=== PATIENT | male | born 1940 | race Caucasian/White ===

== ENCOUNTER 2019-09-30 11:30 | Inpatient (IN) | payer MEDICARE, SELFPAY ==
[2019-09-30] VITALS (13 sets, daily range): BP systolic 109–148; BP diastolic 41–99; PULSE 65–79; RESP 19–32; TEMP 36.7; O2SAT 93–96; BMI 31.3; BMI 32.3
--- NOTE | 2019-09-30 11:47 | XRR_ITS ---
PROCEDURE INFORMATION: Exam: XR Chest, 1 View Exam date and time: 09/30/2019 11:49 AM Age: 79 years old Clinical indication: Shortness of breath; Patient HX: C/O SOB; Additional info: Dyspnea TECHNIQUE: Imaging protocol: XR of the chest Views: 1 view. COMPARISON: CR Chest 1 [place] [id number] 04/16/2019 8:36 AM FINDINGS: Lungs: Stable COPD . Pleural space: Unremarkable. No pleural effusion. No pneumothorax. Heart/Mediastinum: Unremarkable. No cardiomegaly. Vasculature: Calcification of the thoracic aorta and/or great vessels consistent with atherosclerotic vessel disease. Bones/joints: Unremarkable. XR/XR chest 1V portable [id number] IMPRESSION: Stable COPD .
--- NOTE | 2019-09-30 11:47 | ECG_ITS ---
Measurements Intervals [place] Rate: 70 P: 68 OR: 179 QRS: 16 QRSD: 93 T: 64 QT: 385 QTc: 417 SINUS RHYTHM Compared to ECG 04/16/2019 10:07:48 T-wave abnormality no longer present Electronically Signed On 09-30-2019 13:04:50 CDT by Liz Gibson M.D. [id number]
--- NOTE | 2019-09-30 11:51 | W.ED.SOB ---
HPI - SOB/Dyspnea General: Chief Complaint: Shortness of Breath/Dyspnea Stated Complaint: sob Time Seen by Provider: 09/30/19 11:36 History of Present Illness: HPI Narrative: Patient is a 79 year old male presenting with severe shortness of breath. He reports that it started fairly suddenly while he was out fixing fence on and was trying to walk up a hill. He says that he didn't think he was going to make it and had to stop every few steps to catch his breath. He has been admitted here for heart problems previously and has had fluid in his lungs. He takes lasix and hasn't missed any doses, he still feel like it is making him urinate like it usually does. he has not had any chest pain and no leg swelling. He denies fever but has been coughing up white phlegm. He has not had any travel, but [place] which was the first time he had been out around people in a good while. MD elicited complaint: shortness of breath and cough Pertinent past history: congestive heart failure and diabetes Onset (ago): day(s) (2) Context: occurred during exertion Timing: constant Severity: severe Exacerbating factors: lying flat, exertion, movement and talking Relieving factors: rest Known history of: congestive heart failure Associated symptoms: Reports cough and orthopnea; Deny abdominal pain, chest pain, dizziness, extremity pain, fever(s) or palpitations Review of Systems General: Reports: 10 or more systems reviewed and unremarkable except in HPI and below Const: Denies: fever(s), chills or body aches ENMT: Denies: throat pain Card: Reports: orthopnea; Denies: chest pain or palpitations Resp: Reports: dyspnea, productive cough and wheezing GI: Denies: abdominal pain : Denies: difficulty urinating or dysuria Musc: Denies: back pain or extremity pain Neuro: Denies: headache(s), numbness in extremities, weakness in extremities or dizziness Nikos/Lymph: Denies: easy bruising or easy bleeding PFSH ED PFSH: Medical History Atrial fibrillation Family History Family/Other CAD (coronary artery disease) Social History Smoking and tobacco status: never smoked Alcohol intake: never Physical Exam Const: COMMON NORMALS: patient oriented x3 and alert GENERAL APPEARANCE: in distress (mild, accessory muscles); not comfortable HENMT: HEAD & SCALP: normal to inspection FACE & SINUS: normal facial exam Neck/C-Spine: COMMON NORMALS: full ROM and no JVD Chest: COMMONS NORMALS: normal inspection of the chest Resp: EFFORT & INSPECTION: No able to speak in complete sentences, Yes tachypneic, Yes respiratory distress, Yes labored, Yes uses accessory muscles and Yes audible wheezes AUSCULTATION: diminished lung sounds diffuse and bronchial breath sounds Cardio: COMMON NORMALS: no JVD, regular rate, regular rhythm, S1 normal heart sound present and S2 normal heart sound present RATE: regular rate RHYTHM: regular rhythm HEART SOUNDS: S1 normal heart sound present and S2 normal heart sound present Neuro: COMMON NORMALS: patient oriented x3 SENSORIUM/ORIENTATION: Yes alert Course ED course: Patient severely dyspneic - even getting out of breath laying in bed and talking. Lungs clear without rales, and CXR clear. BNP not elevated. CRP and ESR are up but d-dimer is neg. WBC normal. EKG normal. Cause of his SOB is unclear and at rest his sat is ok - low 90's on RA. I suspect he would desat with exertion - but he has been put on COVID precautions and so I can't walk him in the hallway. He will need to be admitted because he is so symptomatic - but the cause of this is very unclear so far. Med list now entered and I see that the patient is amiodarone - this is a possible cause of his dyspnea. Reevaluation(s): Reevaluation #1: Patient sitting up on bedside - he reports breathing a little better - BP is 99/54. Plan to admit - but ABG ordered to further evaluate. Time: 13:39 Vital Signs: Vital signs: Vital Signs Pulse Rate 71 09/30/19 13:48 Respiratory Rate 27 H 09/30/19 13:48 Blood Pressure 118/61 09/30/19 13:48 Pulse Oximetry 94 09/30/19 13:48 MDM - SOB/Dyspnea MDM Narrative: Medical decision making narrative: Patient with shortness of breath, unclear etiology. CHF, [place], anemia (history of prior GI bleed) pneumonia, PE, COVID, amiodarone toxicity Lab Data: Labs: Lab Results 09/30/19 09/30/19 09/30/19 Range/Units 10:43 10:43 10:43 WBC 10.2 H (4.0-10.0) 10^3/ uL RBC 4.97 (4.1-5.3) 10^6/u L Hgb 13.8 (11.7-16.6) g/dL Hct 44.5 (42.0-52.0) % MCV 89.5 (80-94) fL MCH 27.8 L (28.0-34.0) pg MCHC 31.0 (30.0-36.0) g/dL RDW 15.4 H (12.1-15.1) % Plt Count 267 (130-400) 10^3/c mm MPV 9.9 (7.4-10.4) fL Neut % (Auto) 76.2 % Lymph % (Auto) 12.6 % Laurel % (Auto) 8.5 % Eos % (Auto) 2.0 % Baso % (Auto) 0.5 % Neut # (Auto) 7.8 H (1.8-7.7) 10^3/u L Lymph # (Auto) 1.3 (0.8-4.8) 10^3/u L Laurel # (Auto) 0.9 (0.2-0.9) 10^3/u L Eos # (Auto) 0.2 (0.0-0.8) 10^3/u L Baso # (Auto) 0.1 (0.0-0.1) 10^3/u L Nucleated RBC % (a uto) 0 % Nucleated RBCs # 0.0 /100WBC ESR 33 H (0-10) mm/hr PT 31.30 H (10.5-13.3) SECO NDS INR 2.88 H (0.8-1.2) D-Dimer (0-0.59) ug/mIFE U Specimen Type Sample Site ABG pH (7.35-7.45) ABG pCO2 (35-45) mmHg ABG pO2 (80.0-100.0) mmH g ABG HCO3 (22-26) mmol/L ABG Base Excess (-2.0-2.0) mmol/ L Myles Test Hematocrit (42-52) % O2 Delivery Device Piped Pocket Machine Operator ID Sodium (136-145) mmol/L Potassium (3.5-5.1) mmol/L Chloride (98-107) mmol/L Carbon Dioxide (22-29) mmol/L Anion Gap (5-19) BUN (8-23) mg/dL Creatinine (0.7-1.2) mg/dL Glucose (65-115) mg/dL Calculated Osmolal ity (285-295) mOsm/k g Lactate (0.5-2.2) mmol/L Calcium (8.5-10.5) mg/dL Magnesium (1.7-2.3) mg/dL Total Bilirubin (0.15-1.2) mg/dL AST (0-40) U/L ALT (0-41) U/L Alkaline Phosphata se (40-130) IU/L Troponin T Baselin e (0-15) ng/mL Troponin T 120 Min nita (0-15) ng/mL Delta Troponin T (0-10) ABS# C-Reactive Protein (0.0-4.9) mg/L NT-Pro-B Natriuret Pep (0-450) pg/mL Total Protein (6.6-8.7) g/dL Albumin (3.5-5.2) g/dL Globulin (1.3-4.6) g/dL Procalcitonin (0-0.5) ng/mL TSH (0.27-4.20) uIU/ mL Urine Color (Yellow) Urine Appearance (CLEAR) Urine pH (5-7) Ur Specific Gravit y (1.005-1.030) Urine Protein (Negative) Urine Glucose (UA) (Normal) Urine Ketones (Negative) Urine Blood (Negative) Urine Nitrate (Negative) Urine Bilirubin (NEGATIVE) Urine Urobilinogen (Negative) mg/dL Ur Leukocyte Lisa ase (Negative) 09/30/19 09/30/19 09/30/19 Range/Units 10:43 10:43 10:43 WBC (4.0-10.0) 10^3/ uL RBC (4.1-5.3) 10^6/u L Hgb (11.7-16.6) g/dL Hct (42.0-52.0) % MCV (80-94) fL MCH (28.0-34.0) pg MCHC (30.0-36.0) g/dL RDW (12.1-15.1) % Plt Count (130-400) 10^3/c mm MPV (7.4-10.4) fL Neut % (Auto) % Lymph % (Auto) % Laurel % (Auto) % Eos % (Auto) % Baso % (Auto) % Neut # (Auto) (1.8-7.7) 10^3/u L Lymph # (Auto) (0.8-4.8) 10^3/u L Laurel # (Auto) (0.2-0.9) 10^3/u L Eos # (Auto) (0.0-0.8) 10^3/u L Baso # (Auto) (0.0-0.1) 10^3/u L Nucleated RBC % (a uto) % Nucleated RBCs # /100WBC ESR (0-10) mm/hr PT (10.5-13.3) SECO NDS INR (0.8-1.2) D-Dimer (0-0.59) ug/mIFE U Specimen Type Sample Site ABG pH (7.35-7.45) ABG pCO2 (35-45) mmHg ABG pO2 (80.0-100.0) mmH g ABG HCO3 (22-26) mmol/L ABG Base Excess (-2.0-2.0) mmol/ L Myles Test Hematocrit (42-52) % O2 Delivery Device Piped Pocket Machine Operator ID Sodium 137 (136-145) mmol/L Potassium 5.1 (3.5-5.1) mmol/L Chloride 100 (98-107) mmol/L Carbon Dioxide 25 (22-29) mmol/L Anion Gap 17.1 (5-19) BUN 28 H (8-23) mg/dL Creatinine 1.5 H (0.7-1.2) mg/dL Glucose 252 H (65-115) mg/dL Calculated Osmolal ity 290 (285-295) mOsm/k g Lactate 2.1 (0.5-2.2) mmol/L Calcium 9.6 (8.5-10.5) mg/dL Magnesium 2.1 (1.7-2.3) mg/dL Total Bilirubin 0.4 (0.15-1.2) mg/dL AST 14 (0-40) U/L ALT 25 (0-41) U/L Alkaline Phosphata se 109 (40-130) IU/L Troponin T Baselin e 12 (0-15) ng/mL Troponin T 120 Min nita (0-15) ng/mL Delta Troponin T (0-10) ABS# C-Reactive Protein 13.7 H (0.0-4.9) mg/L NT-Pro-B Natriuret Pep 254 (0-450) pg/mL Total Protein 7.6 (6.6-8.7) g/dL Albumin 4.2 (3.5-5.2) g/dL Globulin 3.4 (1.3-4.6) g/dL Procalcitonin (0-0.5) ng/mL TSH (0.27-4.20) uIU/ mL Urine Color (Yellow) Urine Appearance (CLEAR) Urine pH (5-7) Ur Specific Gravit y (1.005-1.030) Urine Protein (Negative) Urine Glucose (UA) (Normal) Urine Ketones (Negative) Urine Blood (Negative) Urine Nitrate (Negative) Urine Bilirubin (NEGATIVE) Urine Urobilinogen (Negative) mg/dL Ur Leukocyte Lisa ase (Negative) 09/30/19 09/30/19 09/30/19 Range/Units 10:43 10:43 13:18 WBC (4.0-10.0) 10^3/ uL RBC (4.1-5.3) 10^6/u L Hgb (11.7-16.6) g/dL Hct (42.0-52.0) % MCV (80-94) fL MCH (28.0-34.0) pg MCHC (30.0-36.0) g/dL RDW (12.1-15.1) % Plt Count (130-400) 10^3/c mm MPV (7.4-10.4) fL Neut % (Auto) % Lymph % (Auto) % Laurel % (Auto) % Eos % (Auto) % Baso % (Auto) % Neut # (Auto) (1.8-7.7) 10^3/u L Lymph # (Auto) (0.8-4.8) 10^3/u L [place] # (Auto) (0.2-0.9) 10^3/u L Eos # (Auto) (0.0-0.8) 10^3/u L Baso # (Auto) (0.0-0.1) 10^3/u L Nucleated RBC % (a uto) % Nucleated RBCs # /100WBC ESR (0-10) mm/hr PT (10.5-13.3) SECO NDS INR (0.8-1.2) D-Dimer <= 0.27 (0-0.59) ug/mIFE U Specimen Type Sample Site ABG pH (7.35-7.45) ABG pCO2 (35-45) mmHg ABG pO2 (80.0-100.0) mmH g ABG HCO3 (22-26) mmol/L ABG Base Excess (-2.0-2.0) mmol/ L Myles Test Hematocrit (42-52) % O2 Delivery Device Piped Pocket Machine Operator ID Sodium (136-145) mmol/L Potassium (3.5-5.1) mmol/L Chloride (98-107) mmol/L Carbon Dioxide (22-29) mmol/L Anion Gap (5-19) BUN (8-23) mg/dL Creatinine (0.7-1.2) mg/dL Glucose (65-115) mg/dL Calculated Osmolal ity (285-295) mOsm/k g Lactate (0.5-2.2) mmol/L Calcium (8.5-10.5) mg/dL Magnesium (1.7-2.3) mg/dL Total Bilirubin (0.15-1.2) mg/dL AST (0-40) U/L ALT (0-41) U/L Alkaline Phosphata se (40-130) IU/L Troponin T Baselin e (0-15) ng/mL Troponin T 120 Min nita (0-15) ng/mL Delta Troponin T (0-10) ABS# C-Reactive Protein (0.0-4.9) mg/L NT-Pro-B Natriuret Pep (0-450) pg/mL Total Protein (6.6-8.7) g/dL Albumin (3.5-5.2) g/dL Globulin (1.3-4.6) g/dL Procalcitonin 0.10 (0-0.5) ng/mL TSH (0.27-4.20) uIU/ mL Urine Color Yellow (Yellow) Urine Appearance Clear (CLEAR) Urine pH 5 (5-7) Ur Specific Gravit y 1.015 (1.005-1.030) Urine Protein Neg (Negative) Urine Glucose (UA) 1+ (Normal) Urine Ketones Negative (Negative) Urine Blood Neg (Negative) Urine Nitrate Negative (Negative) Urine Bilirubin Neg (NEGATIVE) Urine Urobilinogen Norm (Negative) mg/dL Ur Leukocyte Lisa ase Negative (Negative) 09/30/19 09/30/19 09/30/19 Range/Units 13:41 13:48 13:48 WBC (4.0-10.0) 10^3/ uL RBC (4.1-5.3) 10^6/u L Hgb (11.7-16.6) g/dL Hct (42.0-52.0) % MCV (80-94) fL MCH (28.0-34.0) pg MCHC (30.0-36.0) g/dL RDW (12.1-15.1) % Plt Count (130-400) 10^3/c mm MPV (7.4-10.4) fL Neut % (Auto) % Lymph % (Auto) % [place] % (Auto) % Eos % (Auto) % Baso % (Auto) % Neut # (Auto) (1.8-7.7) 10^3/u L Lymph # (Auto) (0.8-4.8) 10^3/u L [place] # (Auto) (0.2-0.9) 10^3/u L Eos # (Auto) (0.0-0.8) 10^3/u L Baso # (Auto) (0.0-0.1) 10^3/u L Nucleated RBC % (a uto) % Nucleated RBCs # /100WBC ESR (0-10) mm/hr PT (10.5-13.3) SECO NDS INR (0.8-1.2) D-Dimer (0-0.59) ug/mIFE U Specimen Type Arterial Sample Site Radial, left ABG pH 7.37 (7.35-7.45) ABG pCO2 42.7 (35-45) mmHg ABG pO2 80.1 (80.0-100.0) mmH g ABG HCO3 24.5 (22-26) mmol/L ABG Base Excess -1.0 (-2.0-2.0) mmol/ L Myles Test Pos Hematocrit 43.5 (42-52) % O2 Delivery Device Room air Piped Pocket Machine Operator ID gd Sodium (136-145) mmol/L Potassium (3.5-5.1) mmol/L Chloride (98-107) mmol/L Carbon Dioxide (22-29) mmol/L Anion Gap (5-19) BUN (8-23) mg/dL Creatinine (0.7-1.2) mg/dL Glucose (65-115) mg/dL Calculated Osmolal ity (285-295) mOsm/k g Lactate (0.5-2.2) mmol/L Calcium (8.5-10.5) mg/dL Magnesium (1.7-2.3) mg/dL Total Bilirubin (0.15-1.2) mg/dL AST (0-40) U/L ALT (0-41) U/L Alkaline Phosphata se (40-130) IU/L Troponin T Baselin e (0-15) ng/mL Troponin T 120 Min nita 11.25 (0-15) ng/mL Delta Troponin T -0.75 L (0-10) ABS# C-Reactive Protein (0.0-4.9) mg/L NT-Pro-B Natriuret Pep (0-450) pg/mL Total Protein (6.6-8.7) g/dL Albumin (3.5-5.2) g/dL Globulin (1.3-4.6) g/dL Procalcitonin (0-0.5) ng/mL TSH 2.79 (0.27-4.20) uIU/ mL Urine Color (Yellow) Urine Appearance (CLEAR) Urine pH (5-7) Ur Specific Gravit y (1.005-1.030) Urine Protein (Negative) Urine Glucose (UA) (Normal) Urine Ketones (Negative) Urine Blood (Negative) Urine Nitrate (Negative) Urine Bilirubin (NEGATIVE) Urine Urobilinogen (Negative) mg/dL Ur Leukocyte Lisa ase (Negative) EKG Data^: EKG 1: Interpretation: NSR 70 normal intervals, normal axis, no ST changes Discharge Plan Discharge Admit Provider: Lisa Sánchez Coding Level of Care Code ED Tie Inspector for Chg Fwd Exam Detailed
[2019-09-30 11:54] LABS: Basophils # 0.1 10^3/uL (0.0-0.1); Basophils % 0.5 %; Eosinophils # 0.2 10^3/uL (0.0-0.8); Hematocrit 44.5 % (42.0-52.0); Hemoglobin 13.8 g/dL (11.7-16.6); Lymphocytes # 1.3 10^3/uL (0.8-4.8); Lymphocytes % 12.6 %; Mean Corpuscular Hemoglobin 27.8 pg (28.0-34.0); Mean Corpuscular Volume 89.5 fL (80-94); Mean Platelet Volume 9.9 fL (7.4-10.4); Monocytes # 0.9 10^3/uL (0.2-0.9); Monocytes % 8.5 %; Neutrophils # 7.8 10^3/uL (1.8-7.7); Neutrophils % 76.2 %; Nucleated Red Blood Cells % 0 %; Platelet Count 267 10^3/cmm (130-400); Red Blood Count 4.97 10^6/uL (4.1-5.3); Red Cell Distribution Width 15.4 % (12.1-15.1); White Blood Count 10.2 10^3/uL (4.0-10.0)
[2019-09-30 12:08] LABS: Lactate (Lactic Acid level) 2.1 mmol/L (0.5-2.2)
[2019-09-30 12:13] LABS: Troponin(5th) Baseline 12 ng/mL (0-15)
[2019-09-30 12:22] LABS: Alanine Aminotransferase 25 U/L (0-41); Albumin Level 4.2 g/dL (3.5-5.2); Alkaline Phosphatase 109 IU/L (40-130); Anion Gap 17.1 (5-19); Aspartate Amino Transferase 14 U/L (0-40); Blood Urea Nitrogen 28 mg/dL (8-23); C Reactive Protein 13.7 mg/L (0.0-4.9); Calcium 9.6 mg/dL (8.5-10.5); Carbon Dioxide 25 mmol/L (22-29); Chloride 100 mmol/L (98-107); Globulin 3.4 g/dL (1.3-4.6); Glucose 252 mg/dL (65-115); Magnesium 2.1 mg/dL (1.7-2.3); NT Pro B Type Natriuretic Pept 254 pg/mL (0-450); Osmolality Calculated 290 mOsm/kg (285-295); Potassium 5.1 mmol/L (3.5-5.1); Sodium 137 mmol/L (136-145); Total Bilirubin 0.4 mg/dL (0.15-1.2); Total Protein 7.6 g/dL (6.6-8.7)
--- NOTE | 2019-09-30 12:25 | PC.NURSE ---
Patient swabbed with the COVID swab and swab sent to lab at this time.
[2019-09-30 12:46] LABS: Erythrocyte Sedimentation Rate 33 mm/hr (0-10)
[2019-09-30 12:56] LABS: INR 2.88 (0.8-1.2)
[2019-09-30 13:12] LABS: D Dimer <= 0.27 ug/mIFEU (0-0.59)
[2019-09-30] MEDS: sodium chloride 0.9% 500 ML 999 ML IV (13:48)
--- NOTE | 2019-09-30 13:49 | ECG_ITS ---
Measurements Intervals [place] Rate: 64 P: 97 CO: 191 QRS: 15 QRSD: 92 T: 60 QT: 328 QTc: 340 SINUS RHYTHM NONSPECIFIC T-WAVE ABNORMALITY Compared to ECG 09/30/2019 14:01:28 T-wave abnormality now present Electronically Signed On 10-01-2019 9:49:00 CDT by Liz Gibson M.D. [id number]
[2019-09-30 13:51] LABS: Add Urine Microscopic? NO
[2019-09-30 13:57] LABS: Bilirubin Urine Neg (NEGATIVE); Blood Urine Neg (Negative); Glucose Urine UA 1+ (Normal); Ketones Urine Negative (Negative); Leukocyte Esterase Urine Negative (Negative); Nitrate Urine Negative (Negative); Protein Urine Neg (Negative); Specific Gravity, Urine 1.015 (1.005-1.030); Urine Appearance Clear (CLEAR); Urine Color Yellow (Yellow); Urobilinogen Urine Norm (Negative); pH Urine 5 (5-7)
[2019-09-30 14:01] LABS: ABG PCO2 42.7 mmHg (35-45); ABG PH Result 7.37 (7.35-7.45); Arterial Blood Gas Hematocrit 43.5 % (42-52); Blood Gas Allen Test Pos; Blood Gas Sample Site Radial, left; Blood Gas Sample Type Arterial; HCO3 ABG 24.5 mmol/L (22-26); Oxygen Device ROOM AIR; PO2 ABG 80.1 mmHg (80.0-100.0)
[2019-09-30 14:17] LABS: Troponin 5 2HR 11.25 ng/mL (0-15)
[2019-09-30 14:25] LABS: Thyroid Stimulating Hormone 2.79 uIU/mL (0.27-4.20)
[2019-09-30 14:38] LABS: Troponin 5 2HR Delta -0.75 ABS# (0-10)
--- NOTE | 2019-09-30 17:49 | ECG_ITS ---
Measurements Intervals [place] Rate: 69 P: 103 [place]: 179 QRS: 14 QRSD: 97 T: 64 QT: 394 QTc: 422 SINUS RHYTHM Compared to ECG 09/30/2019 12:05:30 No significant changes Electronically Signed On 09-30-2019 16:25:06 CDT by Liz Gibson M.D. [id number]
--- NOTE | 2019-09-30 21:07 | P.HP_ITS ---
Providers/Chief Complaint Admitting Physician: Lisa Sánchez MD Primary Care Provider: Bassam Hou MD Chief Complaint: sob History of Present Illness Lalo Hess is a 79 year old male who presented to the emergency room with chief complaint of difficulty breathing. He has a history of atrial fibrillation status post cardioversion in 2019 as well as congestive heart fa ilure. Denies any history of coronary artery disease. He intermittently will have some difficulty breathing but for the last few weeks has been short of breath constantly particularly with exertion. He is not able to lie flat and has noticed that he does better if he sits up in a chair for the last few weeks. He has had some swelling and reports that he is actually gained 5 pounds since yesterday. He is chronically on Lasix and reports compliance with this. Work- up in the emergency room showed a unremarkable chest x-ray. BNP was only minimally elevated. Vital signs were acceptable however with exertion patient was very tachypneic. He is chronically on amiodarone. He reports a cough that if it is productive has just clear fluid. He has nocturia at least 2-3 times a night. He is being admitted for further evaluation and treatment given how symptomatic he is. No fevers. No known sick contacts. Denies change in sense of smell or taste. No sore throat. Review of Systems Const: Denies: fever(s), chills or change in appetite ENMT: Denies: throat pain, dry mouth or nasal congestion Card: Reports: dyspnea on exertion; Denies: chest pain, palpitations or edema Resp: Reports: dyspnea; Denies: productive cough or non-productive cough GI: Denies: abdominal pain, nausea, vomiting, diarrhea or constipation : Reports: other (Nocturia) Musc: Denies: extremity pain, joint swelling or joint redness Skin/Breast: Denies: rash or pruritus Neuro: Reports: weakness in extremities and dizziness; Denies: headache(s) or numbness in extremities Psych: Denies: anxiety or depression Nikos/Lymph: Denies: easy bruising or easy bleeding Medications/Allergies Home Medications Medication Instructions Recorded Confirmed Last Taken Type atorvastatin 40 mg tablet 40 mg PO DAILY tab 05/16/19 09/30/19 09/29/19 History levothyroxine 50 mcg capsule 50 mcg PO DAILY cap 05/16/19 09/30/19 09/30/19 History magnesium oxide 400 mg PO DAILY 05/16/19 09/30/19 09/30/19 History nitroglycerin 0.4 mg sublingual 0.4 mg SUBLINGUAL Q5M PRN 05/16/19 09/30/19 Unknown History tablet tamsulosin 0.4 mg capsule 0.8 mg PO QAM cap 05/16/19 09/30/19 09/30/19 History warfarin 3 mg tablet 3 mg PO DIRECTED tab 06/05/19 09/30/19 Unknown History lisinopril 5 mg tablet 5 mg PO DAILY #90 tab 07/12/19 09/30/19 09/29/19 Rx metoprolol succinate 100 mg 100 mg PO DAILY #90 tab 07/12/19 09/30/19 09/29/19 Rx tablet,extended release 24 hr warfarin 2 mg tablet 2 mg PO DIRECTED tab 07/20/19 09/30/19 09/29/19 History amiodarone 200 mg PO QAM 09/30/19 09/30/19 09/30/19 History furosemide 40 mg PO DAILY 09/30/19 09/30/19 09/30/19 History metformin 850 mg PO QAM 09/30/19 09/30/19 09/30/19 History potassium chloride 20 meq PO QAM 09/30/19 09/30/19 09/30/19 History Allergies Allergy/AdvReac Type Severity Reaction Status Date / Time No Known Allergies Allergy Unverified 05/16/19 12:19 PFSH Acute PFSH: Medical History Atrial fibrillation Status post cardioversion June 2018 BPH (benign prostatic hyperplasia) Congestive heart failure Diabetes mellitus type 2, noninsulin dependent Diverticulosis Essential hypertension Hypothyroid Mixed hyperlipidemia Surgical History History of cataract surgery History of lumbar laminectomy Hx of cholecystectomy Family History Family/Other CAD (coronary artery disease) Social History Smoking and tobacco status: never smoked Alcohol intake: never Vitals/I&O/Wt Last Vital Signs Temp 98.0 F 09/30/19 18:36 Pulse 72 09/30/19 20:00 Resp 20 H 09/30/19 20:00 BP 132/59 09/30/19 20:00 Pulse Ox 93 09/30/19 20:00 09/30/19 09/30/19 09/30/19 06:59 14:59 22:59 Intake Total 449.55 / 449.55 Balance 449.55 / 449.55 Weight last 48 hrs Weight 93.525 kg Weight 90.718 kg Physical Exam Const: OTHER: Alert, oriented x3, cooperative but anxious due to respiratory status, mild distress HENMT: OTHER: Normocephalic atraumatic, moist mucus membranes Eye: OTHER: Extraocular movements intact Neck/C-Spine: OTHER: Supple, positive JVD Resp: OTHER: Bibasilar Rales, supraclavicular retractions, tachypneic Cardio: OTHER: Regular rhythm, no murmur GI: OTHER: Abdomen soft, nontender, nondistended with positive bowel sounds Extremity: NARRATIVE EXTREMITY EXAM: Trace pitting edema Neuro: OTHER: Face symmetric, speech clear, moves all extremities Psych: OTHER: Normal affect Skin: OTHER: Skin without any lesions or rashes noted Data : 10/01/19 04:40 10/01/19 04:40 A&P Assessment and plan (1) Dyspnea on exertion: Clinically patient sounds like he has acute on chronic CHF. Symptomatic atrial fibrillation and even an anginal equivalent can present this way however. One thing to keep in mind is the chronic amiodarone which she is on since his cardioversion in June of last year and possibly even prior to that. Status: Acute (2) Congestive heart failure: Status: Chronic Qualifiers: Heart failure chronicity: acute on chronic Heart failure type: systolic Qualified Code(s): I50.23 - Acute on chronic systolic (congestive) heart failure (3) Atrial fibrillation: Status: Chronic Qualifiers: Atrial fibrillation type: paroxysmal Qualified Code(s): I48.0 - Paroxysmal atrial fibrillation (4) Diabetes mellitus type 2, noninsulin dependent: Status: Chronic (5) Chronic anticoagulation: Status: Chronic (6) Essential hypertension: Status: Chronic (7) Mixed hyperlipidemia: Status: Chronic (8) BPH (benign prostatic hyperplasia): Status: Chronic Qualifiers: Lower urinary tract symptom detail: nocturia Lower urinary tract symptom presence: symptoms present Qualified Code(s): N40.1 - Benign prostatic hyperplasia with lower urinary tract symptoms; R35.1 - Nocturia (9) Hypothyroid: Status: Chronic Qualifiers: Hypothyroidism type: unspecified Qualified Code(s): E03.9 - Hypothyroidism, unspecified Additional A&P Information Inpatient admission Follow-up pended COVID testing Initiate some diuresis and monitor response Given prostatic hypertrophy if needs catheter will place Repeat echocardiogram Telemetry monitoring Follow serial troponins Home medications as ordered including an DELONTE inhibitor, statin, thyroid medication, Flomax and metoprolol Continue amiodarone presently Keep on Coumadin, check another INR Coumadin provides appropriate VTE prophylaxis as it is currently therapeutic Supportive care otherwise Plans discussed with patient and he was given an opportunity to ask questions Full code Attestations Medical Necessity Statement*: Anticipated stay greater than 2 midnights in this gentleman presenting with progressively worsening dyspnea on exertion. He is not somebody who comes to the hospital frequently. Symptoms are strongly suggestive of acute on chronic CHF. He is on Lasix usually. Plans are as noted above. Coding Level of Care Code Acute Gerontological Nurse Practitioner for Stan Haider Diagnoses Dyspnea on exertion R06.00 Congestive heart failure I50.23 Heart failure chronicity: acute on chronic Heart failure type: systolic Atrial fibrillation I48.0 Atrial fibrillation type: paroxysmal Diabetes mellitus type 2, noninsulin dependent E11.9 Chronic anticoagulation Z79.01 Essential hypertension I10 Mixed hyperlipidemia E78.2 BPH (benign prostatic hyperplasia) N40.1; R35.1 Lower urinary tract symptom detail: nocturia Lower urinary tract symptom presence: symptoms present Hypothyroid E03.9 Hypothyroidism type: unspecified
[2019-09-30] MEDS: enoxaparin 40 mg/0.4 mL Syringe SUBCUT (21:36)
[2019-09-30] MEDS: ondansetron 2 mg/ML SDV 2 mL 4 MG IVP (21:36)
[2019-09-30] MEDS: FUROsemide 10 mg/mL SDV 4mL 40 MG IVP (21:36)
[2019-10-01] VITALS (12 sets, daily range): BP systolic 112–160; BP diastolic 52–74; PULSE 65–87; RESP 17–23; TEMP 36.6–36.9; O2SAT 92–96
[2019-10-01 05:02] LABS: Basophils % 0.3 %; Eosinophils # 0.2 10^3/uL (0.0-0.8); Hematocrit 43.9 % (42.0-52.0); Hemoglobin 13.5 g/dL (11.7-16.6); Lymphocytes # 1.2 10^3/uL (0.8-4.8); Lymphocytes % 17.6 %; Mean Corpuscular HGB Conc 30.8 g/dL (30.0-36.0); Mean Corpuscular Hemoglobin 28.7 pg (28.0-34.0); Mean Corpuscular Volume 93.2 fL (80-94); Mean Platelet Volume 9.4 fL (7.4-10.4); Monocytes # 0.6 10^3/uL (0.2-0.9); Monocytes % 9.3 %; Neutrophils # 4.6 10^3/uL (1.8-7.7); Neutrophils % 69.2 %; Nucleated Red Blood Cells % 0 %; Platelet Count 237 10^3/cmm (130-400); Red Blood Count 4.71 10^6/uL (4.1-5.3); Red Cell Distribution Width 15.6 % (12.1-15.1); White Blood Count 6.7 10^3/uL (4.0-10.0)
[2019-10-01 05:26] LABS: Anion Gap 18.6 (5-19); Blood Urea Nitrogen 25 mg/dL (8-23); Calcium 9.6 mg/dL (8.5-10.5); Carbon Dioxide 25 mmol/L (22-29); Chloride 98 mmol/L (98-107); Glucose 148 mg/dL (65-115); Osmolality Calculated 284 mOsm/kg (285-295); Potassium 4.6 mmol/L (3.5-5.1); Sodium 137 mmol/L (136-145)
[2019-10-01] MEDS: tamsulosin 0.4 mg Capsule 0.8 MG PO (05:44)
[2019-10-01] MEDS: amiodarone 200 mg Tablet PO (05:45)
[2019-10-01] MEDS: atorvastatin 40 mg Tablet PO (08:39)
[2019-10-01] MEDS: levothyroxine 50 mcg Tablet PO (08:39)
[2019-10-01] MEDS: FUROsemide 40 mg Tablet PO (08:39)
[2019-10-01] MEDS: lisinopril 5 mg Tablet PO (08:40)
[2019-10-01] MEDS: metoprolol succinate ER (24 HR) 100 mg Tablet PO (08:40)
[2019-10-01] MEDS: magnesium oxide 400 mg tablet PO (08:40)
[2019-10-01] MEDS: warfarin 2 mg Tablet PO (13:35)
[2019-10-01 14:58] LABS: Coronavirus Lab Test PTC SEE REPORT
[2019-10-01] MEDS: enoxaparin 40 mg/0.4 mL Syringe SUBCUT (20:44)
--- NOTE | 2019-10-01 22:26 | PM.PN ---
Subjective Subjective: Interval history: Patient doing much better today. Had over 2-1/2 L out with Lasix last night. Vee catheter was placed to facilitate this. Feels like he can breathe again. No new complaints. COVID testing came back negative and he is being transferred to [facility]. Vitals/I&O/Wt Last Vital Signs Temp 97.8 F 10/01/19 19:53 Pulse 72 10/01/19 19:53 Resp 18 10/01/19 19:53 BP 126/68 10/01/19 19:53 Pulse Ox 95 10/01/19 19:53 10/01/19 10/01/19 10/01/19 06:59 14:59 22:59 Intake Total 534 / 534 360 / 894 Output Total 1000 / 1300 200 / 200 300 / 500 Balance -1000 / -850.45 334 / 334 60 / 394 Weight last 48 hrs Weight 93.525 kg Weight 90.718 kg Physical Exam Const: OTHER: Alert, oriented x3, no distress today, not as anxious HENMT: OTHER: Moist mucous membranes Eye: OTHER: Extraocular movements intact Neck/C-Spine: OTHER: Supple, no JVD Resp: OTHER: Improved aeration throughout Cardio: OTHER: Regular rate and rhythm GI: OTHER: Abdomen soft, nontender : BLADDER/KIDNEY EXAM: Yes catheter in place Catheter type (Male): urethral (Placed night of 09/29-) Extremity: NARRATIVE EXTREMITY EXAM: No pitting edema Neuro: OTHER: Speech clear, moves all extremities Psych: OTHER: Normal affect Skin: OTHER: Skin without any lesions or rashes noted Data : 10/01/19 04:40 10/01/19 04:40 A&P Assessment and plan (1) Dyspnea on exertion: Given significant response to diuretic therapy I do believe this is secondary to acute on chronic CHF. Symptomatic atrial fibrillation and even an anginal equivalent can present this way however. Currently in sinus rhythm. Denies chest pain. One thing to keep in mind is the chronic amiodarone which he is on since his cardioversion in June of last year and possibly even prior to that. Status: Acute (2) Congestive heart failure: Status: Chronic Qualifiers: Heart failure chronicity: acute on chronic Heart failure type: systolic Qualified Code(s): I50.23 - Acute on chronic systolic (congestive) heart failure (3) Acute kidney injury: Believe secondary to acute CHF. 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 Status: Acute (4) Atrial fibrillation: Status post cardioversion, currently in sinus rhythm Status: Chronic Qualifiers: Atrial fibrillation type: paroxysmal Qualified Code(s): I48.0 - Paroxysmal atrial fibrillation (5) Chronic anticoagulation: Coumadin Status: Chronic (6) Diabetes mellitus type 2, noninsulin dependent: Status: Chronic (7) Essential hypertension: Status: Chronic (8) Mixed hyperlipidemia: Status: Chronic (9) BPH (benign prostatic hyperplasia): Status: Chronic Qualifiers: Lower urinary tract symptom detail: nocturia Lower urinary tract symptom presence: symptoms present Qualified Code(s): N40.1 - Benign prostatic hyperplasia with lower urinary tract symptoms; R35.1 - Nocturia (10) Hypothyroid: Status: Chronic Qualifiers: Hypothyroidism type: unspecified Qualified Code(s): E03.9 - Hypothyroidism, unspecified Additional A&P Information Changed to p.o. Lasix Monitor response Discontinue Vee Post Vee removal monitor for ability to urinate secondary to BPH Follow-up pending echocardiogram Telemetry monitoring Monitor renal function Home medications include DELONTE inhibitor, statin, thyroid medication, Flomax, metoprolol, amiodarone On home Coumadin with appropriate INR Coumadin provides appropriate VTE prophylaxis as it is currently therapeutic Supportive care otherwise Plans discussed with patient and he was given an opportunity to ask questions If he continues to do well possible discharge home tomorrow outpatient follow-up Full code Attestations Medical Necessity Statement*: Requires ongoing inpatient stay for continued diuresis in the setting of acute CHF with acute kidney injury and respiratory issues. Other plans as noted. 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
[2019-10-02] VITALS: BP 116/62; PULSE 61; RESP 18; TEMP 36.6; O2SAT 100
[2019-10-02 04:00] VITALS: BP 136/74; PULSE 63; RESP 14; TEMP 36.4; O2SAT 98
[2019-10-02] MEDS: tamsulosin 0.4 mg Capsule 0.8 MG PO (05:31)
[2019-10-02] MEDS: amiodarone 200 mg Tablet PO (05:31)
--- NOTE | 2019-10-02 06:00 | USCV_ITS ---
Lalo Hess Age: 79 Gender: M : 1940 Exam Date: 10/02/2019 07:36 Ordering Phys: Lisa Sánchez MD Technologist: Louisa Cortés [place]am [place] [facility] [place]: CHF BP: 136 / 74 HR: 63 Rhythm: Sinus Technical Quality: Adequate MEASUREMENTS (Male / Female) Normal Values 2D ECHO LV Diastolic Diameter PLAX 4.3 cm 4.2 - 5.9 / 3.9 - 5.3 cm LV Systolic Diameter PLAX 2.9 cm LV Chamber Size 2.9 cm IVS Diastolic Thickness 1.9 cm 0.6 - 1.0 / 0.6 - 0.9 cm IVS Systolic Thickness 1.9 cm LVPW Diastolic Thickness 2.4 cm 0.6 - 1.0 / 0.6 - 0.9 cm LVPW Systolic Thickness 2.6 cm RV Chamber Size 3.7 cm LVOT Diameter 2.1 cm LV Ejection Fraction 2D Teich 59.8 % LV Ejection Fraction MOD 2C 78.8 % LV Ejection Fraction 2C AL 81.3 % LA Diameter 5.0 cm LA Width 3.5 cm LA Height 4.8 cm RA Width 3.8 cm RA Height 3.9 cm Aorta at Sinotubular Diameter 2.7 cm M-MODE LV Diastolic Diameter MM 5.3 cm 4.2 - 5.9 / 3.9 - 5.3 cm LV Systolic Diameter MM 3.3 cm LV Ejection Fraction MM Teich 68.4 % IVS Diastolic Thickness MM 1.0 cm 0.6 - 1.0 / 0.6 - 0.9 cm IVS Systolic Thickness MM 1.7 cm LVPW Diastolic Thickness MM 1.1 cm 0.6 - 1.0 / 0.6 - 0.9 cm LVPW Systolic Thickness MM 1.6 cm Aortic Annulus Diameter 3.3 cm LA Ao Ratio MM 1.5 MV E Point Septal Separation 1.5 cm DOPPLER AV Peak Velocity 132.0 cm/s LVOT Peak Velocity 92.0 cm/s AV Area Cont Eq vti 2.4 cm squared AV Area Cont Eq pk 2.3 cm squared MV Area PHT 3.7 cm squared Mitral E to A Ratio 0.9 MV E' Velocity 12.0 cm/s Mitral E to MV E' Ratio 7.1 Mitral E to LV E' Lateral Ratio 5.4 Mitral E to LV E' Septal Ratio 10.6 TR Peak Velocity 118.0 cm/s TR Peak Gradient 5.5 mmHg TV Peak E Velocity 36.0 cm/s Right Atrial Pressure 3.0 mmHg Pulmonary Artery Systolic Pressu 8.6 mmHg PV Peak Velocity 45.0 cm/s RV Acceleration Time 0.1 s RV Ejection Time 0.3 s RV AcT/ET 0.4 FINDINGS Left Ventricle Normal left ventricular size and systolic function, EF 72 %. No regional wall motion abnormalities. Grade I/IV diastolic dysfunction (abnormal relaxation filling pattern), normal to mildly elevated filling pressures. Right Ventricle Possibly normal RV size and ejection fraction Right Atrium Possibly of normal size Left Atrium Possibly of normal size Mitral Valve Thickened mitral valve. Aortic Valve Thickened aortic valve. Tricuspid Valve No gross abnormalities noted Pulmonic Valve Pulmonic valve not well visualized. Pericardium No pericardial effusion. Aorta Normal aortic annulus size. CONCLUSIONS Normal left ventricular size and systolic function, EF 72 %. No regional wall motion abnormalities. Grade I/IV diastolic dysfunction (abnormal relaxation filling pattern), normal to mildly elevated filling pressures. Thickened aortic and mitral valves. There is no pericardial effusion. Technically difficult study because of the poor ultrasonic window. Dr Stephanie Arauz MD FACC (Electronically Signed) Final Date: 02 Oct 2019 14:51 S
[2019-10-02 06:07] LABS: INR 2.36 (0.8-1.2)
[2019-10-02 07:48] VITALS: BP 120/65; PULSE 65; RESP 23; TEMP 36.6
[2019-10-02] MEDS: metoprolol succinate ER (24 HR) 100 mg Tablet PO (09:45)
[2019-10-02] MEDS: lisinopril 5 mg Tablet PO (09:45)
[2019-10-02] MEDS: magnesium oxide 400 mg tablet PO (09:45)
[2019-10-02] MEDS: atorvastatin 40 mg Tablet PO (09:45)
[2019-10-02] MEDS: FUROsemide 40 mg Tablet PO (09:45)
[2019-10-02] MEDS: levothyroxine 50 mcg Tablet PO (09:45)
[2019-10-02 10:00] VITALS: TEMP 36.8
[2019-10-02 11:33] VITALS: BP 112/52; PULSE 71; RESP 19; TEMP 36.8; O2SAT 94
--- NOTE | 2019-10-02 12:20 | PM.DCS ---
Discharge Providers Date of Admission: 09/30/19 14:16 Date of Discharge: October 02, 2019 Attending Provider at Admission: Lisa Sánchez MD Attending Provider at Discharge: Marivel Luo MD Primary Care Provider: Bassam Hou MD Diagnoses at Discharge Discharge Diagnosis (1) Dyspnea on exertion: Status: Acute Problem details: -appears to be secondary to acute CHF exacerbation (2) Congestive heart failure: Status: Chronic Problem details: -appears clinically compensated -has known hx of chronic HFrEF -last Echo (06/2018): EF=35%, global LV hypokinesis, trace to mild SC, trace to mild TR, mild pulmonary HTN -continue Lasix Qualifiers: Heart failure chronicity: acute on chronic Heart failure type: systolic Qualified Code(s): I50.23 - Acute on chronic systolic (congestive) heart failure (3) Acute kidney injury: Status: Acute Problem details: -renal function improving -baseline Cr around 0.9-1.0 -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 (4) Atrial fibrillation: Status: Chronic Problem details: -Status post cardioversion June 2018 -rate controlled -continue Amiodarone, Metoprolol -on AC with coumadin Qualifiers: Atrial fibrillation type: paroxysmal Qualified Code(s): I48.0 - Paroxysmal atrial fibrillation (5) Chronic anticoagulation: Status: Chronic Problem details: -on AC with Coumadin, therapeutic INR (2.36) (6) Diabetes mellitus type 2, noninsulin dependent: Status: Chronic Problem details: -can resume metformin on d/c (7) Essential hypertension: Status: Chronic Problem details: -VSS; continue oral antihypertensives (8) Mixed hyperlipidemia: Status: Chronic Problem details: -continue statin (9) BPH (benign prostatic hyperplasia): Status: Chronic Problem details: -on Flomax Qualifiers: Lower urinary tract symptom detail: nocturia Lower urinary tract symptom presence: symptoms present Qualified Code(s): N40.1 - Benign prostatic hyperplasia with lower urinary tract symptoms; R35.1 - Nocturia (10) Hypothyroid: Status: Chronic Problem details: -continue levothyroxine Qualifiers: Hypothyroidism type: unspecified Qualified Code(s): E03.9 - Hypothyroidism, unspecified Reason for Visit Reason for Visit: Reason For Visit: sob Hospital Course Hospital Course: Patient was admitted to [facility] and started on IV diuresis secondary to noted dyspnea on exertion and clinical evidence of acute CHF exacerbation. He does have known chronic systolic CHF with ejection fraction of 35% on most recent echo done in June 2018. He responded fairly well and quite quickly to diuresis with Lasix and currently appears clinically compensated. He was found to have acute kidney injury at the renal function has since improved. INR is therapeutic at 2.36 and he has been on Coumadin which he takes due to history of chronic atrial fibrillation. He is hemodynamically stable, afebrile, on room air. He was tested for COVID-19 which is negative; he was maintained on isolation precautions prior to results being available; isolation precautions were subsequently discontinued once results came back negative. Patient responded quite well to his dose of Lasix 40 mg once daily and is to remain on this on discharge. He is advised to check his weight daily and if noted weight gain of 3-5 pounds is to take 1 extra dose of Lasix. Discharge Summary: -Patient to follow-up with primary care physician within 1 week Physical Exam Const: COMMON NORMALS: no acute distress and patient oriented x3 GENERAL APPEARANCE: cooperative and comfortable ORIENTATION/CONSCIOUSNESS: Yes awake OTHER: -Looks appropriate for age HENMT: COMMON NORMALS: normocephalic, atraumatic and moist oral mucous membranes HEAD & SCALP: normocephalic and atraumatic GENERAL EAR: hearing grossly impaired Laterality: bilateral Eye: COMMON NORMALS: Equal, round and reactive pupils present, EOMs intact bilaterally and conjunctivae normal CONJUNCTIVA: Yes conjunctivae normal PUPIL: Yes Equal, round and reactive pupils present Neck/C-Spine: COMMON NORMALS: full ROM GENERAL: Yes normal visual inspection and Yes trachea midline Resp: COMMON NORMALS: normal respiratory effort, No retractions, No use of accessory muscles and clear to auscultation bilaterally EFFORT & INSPECTION: Yes able to speak in complete sentences, Yes symmetric chest movement and No tachypneic AUSCULTATION: clear to auscultation bilaterally Cardio: COMMON NORMALS: regular rate, regular rhythm, S1 normal heart sound present, S2 normal heart sound present and No murmurs present (Cardio) RATE: regular rate RHYTHM: regular rhythm HEART SOUNDS: S1 normal heart sound present and S2 normal heart sound present GI: COMMON NORMALS: Normal to inspection, nondistended, normoactive bowel sounds present, Soft to palpation and non-tender INSPECTION: Yes central obesity PALPATION: Yes Soft to palpation Extremity: COMMON NORMALS: normal to inspection, full ROM and no clubbing, cyanosis or edema; negative for no pedal edema GENERAL: Yes edema (Trace pitting edema of bilateral lower extremities) Neuro: COMMON NORMALS: patient oriented x3, moves all extremities, no focal motor deficits and no sensory deficits noted Psych: COMMON NORMALS: mental status grossly normal, Normal thought process present, cooperative, normal affect and speech normal SPEECH: Yes normal speech THOUGHT PROCESS: Normal thought process present Skin: COMMON NORMALS: no rashes or lesions noted, no jaundice, no petechiae and no mottling GENERAL SKIN EXAM: no rashes or lesions noted Discharge Data Data Completed and Pending: Completed Studies During Hospitalization Category Date Time Status XR chest 1V liz ble [id number] Stat Exams 09/30/19 11:47 Completed Pending at discharge Category Date Time Status Basic Metabolic P tay AM LABS Lab 10/03/19 04:00 Ordered Complete Blood Co unt w/Auto AM LABS Lab 10/03/19 04:00 Ordered Magnesium AM LABS Lab 10/03/19 04:00 Ordered CV echo complete* [id number] Routine Ultrasound 10/02/19 06:00 Taken Labs from last 24 hours 10/02/19 09/30/19 05:11 12:25 PT 26.70 H INR 2.36 H Nasal/Oral COVID-1 9 PCR See report Vitals: Last Vital Signs Temp 98.2 F 10/02/19 11:33 Pulse 71 10/02/19 11:33 Resp 19 H 10/02/19 11:33 BP 112/52 10/02/19 11:33 Pulse Ox 94 10/02/19 11:33 Discharge Plan Discharge Patient Disposition: Home, Self-Care Condition: Stable Prescriptions: Continued atorvastatin 40 mg tablet 40 mg PO DAILY RF: 0 levothyroxine 50 mcg capsule 50 mcg PO DAILY RF: 0 magnesium oxide 400 mg magnesium capsule 400 mg PO DAILY RF: 0 nitroglycerin [Nitrostat] 0.4 mg tablet, sublingual 0.4 mg SUBLINGUAL Q5M PRN (Reason: Chest Pain) RF: 0 tamsulosin [Flomax] 0.4 mg capsule 0.8 mg PO QAM RF: 0 warfarin 3 mg tablet 3 mg PO DIRECTED RF: 0 metoprolol succinate 100 mg tablet extended release 24 hr 100 mg PO DAILY Qty: 90 RF: 3 lisinopril 5 mg tablet 5 mg PO DAILY Qty: 90 RF: 3 warfarin 2 mg tablet 2 mg PO DIRECTED RF: 0 amiodarone 200 mg tablet 200 mg PO QAM RF: 0 metformin 850 mg tablet 850 mg PO QAM RF: 0 potassium chloride 20 mEq tablet,ER particles/crystals 20 meq PO QAM RF: 0 furosemide 40 mg tablet 40 mg PO DAILY 30 Days Qty: 30 RF: 0 Discharge Orders: Discharge Order (Routine); Ordered 10/02/19 Ordered By: Marivel Luo Discharge Diet: Cardiac Discharge Activity: Resume usual activity Activity Restrictions/Additional Instructions: -Please continue to weigh yourself daily. If noted weight gain of 3-5 pounds within 24 hrs, please take one extra dose of Lasix. Discharge Attestations Time Spent in Discharge Care*: greater than 30 min Specific Discharge Activities: Specific discharge activities: educating patient, discussing with vocational case manager/social workers/dc planners, documenting/other paperwork and evaluating patient/reviewing data Status at Discharge: Cognitive status at discharge: cognitively intact, Behavioral status at discharge: cooperative, Functional status at discharge: independent ambulation Overall status at discharge: patient is back to baseline Quality Metrics Clinical Quality Measures During this hospital stay, did patient experience: None Coding Level of Care Code Acute Edging Machine Catcher for g Fwd Exam Comprehensive Diagnoses Dyspnea on exertion R06.00 Congestive heart failure I50.23 Heart failure chronicity: acute on chronic Heart failure type: systolic Acute kidney injury N17.9 Atrial fibrillation I48.0 Atrial fibrillation type: paroxysmal Chronic anticoagulation Z79.01 Diabetes mellitus type 2, noninsulin dependent E11.9 Essential hypertension I10 Mixed hyperlipidemia E78.2 BPH (benign prostatic hyperplasia) N40.1; R35.1 Lower urinary tract symptom detail: nocturia Lower urinary tract symptom presence: symptoms present Hypothyroid E03.9 Hypothyroidism type: unspecified
[2019-10-02] MEDS: warfarin 3 mg Tablet PO (13:50)
== END 2019-10-02 15:31 | disposition home or self-care (01) | DRG 291 ==
LOC: ER 11:42 → ICU 15:27 → CSU 10-01 18:43
PROVIDERS: Emergency Medicine; Admitting Provider Hospitalist; PCP Family Medicine; Visit Provider Family Medicine
DX: I13.0 Hypertensive heart and chronic kidney disease with heart failure and stage 1 through stage 4 chronic kidney disease, or unspecified chronic kidney disease (principal); I50.23 Acute on chronic systolic (congestive) heart failure; N17.9 Acute kidney failure, unspecified; I48.20 Chronic atrial fibrillation, unspecified; N18.2 Chronic kidney disease, stage 2 (mild); E11.22 Type 2 diabetes mellitus with diabetic chronic kidney disease; Z79.84 Long term (current) use of oral hypoglycemic drugs; Z79.01 Long term (current) use of anticoagulants; E78.2 Mixed hyperlipidemia; E03.9 Hypothyroidism, unspecified; R35.1 Nocturia; N40.1 Benign prostatic hyperplasia with lower urinary tract symptoms; Z20.828 Contact with and (suspected) exposure to other viral communicable diseases
CPT/HCPCS: 12345; 36415; 36600; 71045; 80048; 80053; 81003; 82803; 83605; 83735; 83880; 84145; 84443; 84484; 85025; 85378; 85610; 85651; 86140; 87635; 93005; 93306; 96372; 96375; 99284; J1650; J1940; J2405; J7040

== ENCOUNTER 2019-11-09 08:18 | Outpatient (CLI) | payer MEDICARE, SELFPAY ==
[2019-11-09 08:29] VITALS: BMI 31.3
--- NOTE | 2019-11-09 08:29 | ECG_ITS ---
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 Interpretive Statements NAME OF STUDY: LEXISCAN SESTAMIBI STRESS TEST INDICATION: Chest Pain, PROCEDURE: At the baseline, the EKG revealed normal sinus rhythm with some nonspecific T wave changes in the high lateral leads. The baseline blood pressure was 147/81 mm Hg with a heart rate of 61 beats/min. Lexiscan was infused over a period of 20 seconds. A total of 0.4 milligrams of Lexiscan was infused. The stress phase was continued for a total of 5 minutes. Heart rate at the end of the stress phase was 69 with a blood pressure 148/77. The EKG at the peak infusion revealed some nonspecific T wave changes in the anterior leads. Sestamibi was injected 20 seconds after the Lexiscan infusion. Blood pressure at the end of the recovery phase was 143/73 with a heart rate of 67 per minute. CONCLUSION: 1. Nonspecific EKG changes with the LexiScan infusion 2. No LexiScan induced chest pain or cardiac arrhythmia 3. Normal blood pressure and heart rate response 4. Sestamibi/sestamibi perfusion scan pending; see separate report. Electronically Signed On 11-14-2019 13:19:50 CDT by Stephanie Arauz M.D. [id number]
--- NOTE | 2019-11-09 08:29 | NMCV_ITS ---
NM morena perf SPECT r/s* [id number] Lalo Hess Age: 79 Gender: M : 1940 Exam Date: 11/09/2019 09:09 Ordering Phys: Stephanie Arauz MD ([email or web address]) Technologist: MANJIT Miller Exam Location: [facility] Indications: SHORTNESS OF BREATH, CHF STRESS TEST Please see separate stress test report in [facility] for full findings IMAGE PROTOCOL Rest/Stress 1 Lexiscan Day Radiopharmaceutical Dose (mCi) Administration Site Administered by Rest: Tc-99m 10.8 IV MANJIT Ferris Sestamibi Stress:Tc-99m 32.5 IV MANJIT Ferris Sestamibi Rest: 09-Nov-2019 60 Discovery 630 Stress: 09-Nov-2019 30 Discovery 630 0.4mg Lexiscan. Images obtained in supine and prone position. SPECT RESULTS Technical Quality: Excellent Raw Data Analysis: Normal Image Corrections: No attenuation or motion correction applied Summed Stress Score: 8 Summed Rest Score: 9 Summed Difference Score: 1 PERFUSION FINDINGS Moderate area of decreased tracer uptake was noted in the basal and mid inferolateral, mid and apical inferior and apical lateral segments. No significant reversibility was noted in these regions. FUNCTIONAL RESULTS (calculated via Gated SPECT) Stress Image LV EF (%): 71 Stress EDV (mL):98 TID: 1.53 Stress ESV (mL):28 FUNCTIONAL FINDINGS: The segmental wall motion analysis revealed no gross wall motion normalities IMPRESSIONS 1. Myocardial perfusion imaging revealing moderate area of persistent decreases uptake in the inferior and inferolateral regions, suggestive of myocardial scarring versus attenuation artifact in the distribution of the right coronary artery/circumflex artery. 2. Normal LV ejection fraction 71%. 3. LV wall motion analysis revealing no gross wall motion normalities 4. Normal LV volume. Elevated transient ischemic dilatation ratio(1.52), may suggest endocardial ischemia. However the positive predictive value this finding is limited. Clinical correlation is recommended. Dr Stephanie Arauz MD FACC (Electronically Signed) Final Date: 09 November 2019 12:57 S
[2019-11-09] MEDS: regadenoson 0.4 Mg/5 ml Syringe IVP (09:55)
[2019-11-09 09:58] VITALS: BP 152/76; PULSE 73
== END 2019-11-09 08:19 | disposition home or self-care (01) ==
LOC: CDL 08:20
PROVIDERS: PCP Family Medicine; Visit Provider Internal Medicine Cardiovascular Disease
DX: I50.23 Acute on chronic systolic (congestive) heart failure (principal); R06.02 Shortness of breath
CPT/HCPCS: 78452; 93017; A9500; J2785

== ENCOUNTER → 2019-11-15 09:38 | Outpatient (BNVA) | payer MEDICARE, SELFPAY | PROVIDERS: PCP Family Medicine; Visit Provider Internal Medicine Cardiovascular Disease | DX: R94.39 Abnormal result of other cardiovascular function study (principal); I50.23 Acute on chronic systolic (congestive) heart failure; E11.9 Type 2 diabetes mellitus without complications; I10 Essential (primary) hypertension; E78.2 Mixed hyperlipidemia; Z79.01 Long term (current) use of anticoagulants; I48.0 Paroxysmal atrial fibrillation | CPT/HCPCS: 80053; 85025 ==

== ENCOUNTER 2019-11-16 08:16 | Observation (INO) | payer MEDICARE, SELFPAY ==
[2019-11-15 12:27] VITALS: BMI 31.3
--- NOTE | 2019-11-15 13:38 | SUR.PREOP ---
PROCEDURE TIME CHANGE Discussed tomorrow's case load with Dr Arauz. Asked if okay to move procedure to 0700 tomorrow as the previously scheduled case cancelled. States he is okay with the change as long as the patient comes in for pre operative blood work. Patient notified. States he had the blood work done at 0930 and is okay with moving the procedure up to 0700 tomorrow with a 0600 check in. Scheduling made aware of the change and the patient moved as appropriate.
[2019-11-15 13:49] LABS: INR 1.37 (0.8-1.2)
--- NOTE | 2019-11-15 13:56 | SUR.PREOP ---
INR RESULT INR CALLED TO MD ORDERED. RESULT 1.37 No new orders at this time.
[2019-11-16] VITALS (30 sets, daily range): BP systolic 91–170; BP diastolic 57–102; PULSE 52–66; RESP 16–26; TEMP 36.4–36.9; O2SAT 90–98
--- NOTE | 2019-11-16 06:00 | XACV_ITS ---
Ht: 170 cm Wt: 91 kg BSA: 2.10 m2 Gender: Male : 1940 Any Known Allergies: No known allergies Exam Priority: Routine Procedure(s): Procedure Description: Diagnostic procedure Procedure Description: Left ventriculography Procedure Description: Coronary Angiography Diagnostic Cath Status: Elective Diagnostic Findings No significant disease noted in the Left Main, LAD, Circumflex, or RCA coronary arteries. Coronary angiography shows right dominance. The left main is a medium caliber vessel with a mild diffuse intimal irregularities. Mild to moderate coronary calcification was noted. The left anterior descending artery is a medium caliber vessel which appears to wrap around the LV apex. It gives off multiple diagonal and septal perforators. Moderate diffuse calcification was noted in the proximal to mid segment of the artery. Mild diffuse intimal irregularities were noted. No significant stenotic lesions. The circumflex artery is a medium caliber vessel with mild diffuse calcification in the proximal segment. Intimal irregularities were noted in the obtuse marginal branches. No significant stenotic lesions. The intermedius artery is a medium caliber vessel appears to bifurcate proximally and was found to have mild diffuse disease. The right coronary artery is a medium caliber dominant vessel which has a high and posterior takeoff. Selective engagement of the artery was somewhat difficult. Multiple catheters were tried. There was around 30% ostial narrowing in the artery. No significant stenotic lesions were noted in the vessel. PCI Status: Elective Conclusions No significant disease noted in the Left Main, LAD, Circumflex, or RCA coronary arteries. Normal left ventricular systolic function. Ejection fraction of 55%. This is a 79-year-old white male with history of hypertension, type 2 diabetes, dyslipidemia, intermittent atrial fibrillation, presented with atypical chest symptoms and dyspnea on exertion. He has a strong family history for atherosclerotic heart disease. He had multiple stress testings in the past. Most recently, the myocardial perfusion imaging revealed some areas of fixed defects in the inferolateral wall region with an elevated transient ischemic dilatation ratio of 1.5. In view of his multiple risk factors and the ongoing symptoms, in order to further evaluate his coronary status, a cardiac catheterization was recommended. Patient underwent left heart catheterization with a left and right coronary angiogram and LV angiogram today. The findings are as follows. Mild diffuse coronary artery disease. Mild to moderate coronary calcification in the proximal vessels specifically in the left main and left anterior descending artery. Normal LV ejection fraction by LV gram. Features of left ventricular diastolic dysfunction with an LVEDP of 23 mmHg. Recommendations Continue current medical management and risk factor modification. Diagnostic RX Recommendation: medical therapy and/or counseling LV EDP: 23 mmHg Ejection Fraction: 55.0 % Left Ventriculography Findings: LV gram was performed the FRANZ projection.. The LV cavity appears to be of normal size. There is no significant mitral valve prolapse or mitral regurgitation. LV ejection fraction was around 55%. Pressures Phase:Rest AO : 107 mmHg / 55 mmHg ( 72 mmHg ) @ 2:21:00 AM 107 mmHg / 56 mmHg ( 73 mmHg ) @ 2:21:00 AM 62 mmHg / 27 mmHg ( 40 mmHg ) @ 2:24:00 AM 106 mmHg / 48 mmHg ( 69 mmHg ) @ 2:54:00 AM 105 mmHg / 44 mmHg ( 71 mmHg ) @ 2:54:00 AM LV : 124 mmHg / -2 mmHg / @ 2:21:00 AM 120 mmHg / -2 mmHg / @ 2:21:00 AM 121 mmHg / 4 mmHg / @ 2:53:00 AM 111 mmHg / 1 mmHg / @ 2:54:00 AM 111 mmHg / 0 mmHg / @ 2:54:00 AM Valves Phase:DefaultPhase AV : 5.0 mmHg @ 8:07:35 AM AV Mean Gradient: 6.0 mmHg @ 8:07:35 AM 6.0 mmHg @ 8:07:35 AM Clinical Evaluation EBL: 5mL-10mL Procedural Details Procedure Consent Obtained. Physician notified. Pre-Procedure Time Out. Identified patient by full name and date of as verbalized by the patient/guarantor. Does the consent match the physician's order: Yes. Accurate & Complete Informed Consent: Yes. Inpatient/Outpatient History & Physical on Chart: Yes. If H&P is completed, is and addenduem needed: No; If yes, is the addendum complete: N/A. Visualize and Verify Site with Patient/Guarantor: N/A. Relevant Radiology Images available: Yes. Pre-op teaching completed and patient verbalized understanding. The risks, benefits, and alternatives of sedation and/or procedure were discussed by physician. The patient agrees to continue. Procedure started. Current diagnosis: Chest Pain. PERRLA. Strong, equal hand waterway traffic checker bilaterally. Lungs clear x 5 lobes. IV Site on Arrival: 20 gauge in the left anticubital. IV Fluids: 0.9% NaCl at KVO. 0 mL infused prior to cathode maker. Pre Procedural Pulses: bilateral dorsalis pedis was 1+. Pre Procedural Pulses: bilateral posterior tibial was 1+. Pre Procedural Pulses: bilateral radial was 3+. Oxygen started at 2liters/min via nasal canula. bilateral groins was prepped with chloroprep then draped in the usual sterile fashion. right radial was prepped with chloroprep then draped in the usual sterile fashion. Baseline sample Acquired. HR: 66 BPM. Equipment: 6F - Radial. [email or web address] Manifold Kit Model BT 2000. Cardiac Cath Pack. Heparinized Saline (2 units/mL), 1000 mL bag. Physician arrived. Physician scrubbed in. Immediate Pre-Procedure Time Out. Correct Patient: Yes; Correct Procedure: Yes; Correct Site: Yes; Correct Patient Position: Yes; Correct Supplies: Yes; Dried Flammable Prep: Yes; Blood Products Available: No;. Lidocaine 1% infiltrated to the right radial. Arterial access obtained. A 5 eritrean Eh catheter in over wire. EDP Sample taken: LV 124/-3,17; HR: 62 BPM; SpO2: 96%. Pullback taken: LV 120/-3,16; AO 107/55(72); Mean: 0mmHg, Peak to Peak: 0mmHg, SEP: 17sec/min; HR: 64 BPM; SpO2: 97%. Multiple views taken of left coronary artery. Catheter redirected to the RCA. Catheter out. A 6 eritrean JR4 catheter in over wire. Multiple views taken of right coronary artery. Catheter out. A 6 eritrean 3DRC catheter in over wire. Bolus complete. Fluids running at 75ml/hr. Catheter out. A 6 eritrean AL1 catheter in over wire. Catheter out. Multiple views taken of right coronary artery. Catheter out. A 6 eritrean Angled Pig catheter in over wire. EDP Sample taken: LV 121/4,23; HR: 61 BPM; SpO2: 98%. LV gram performed in FRANZ @ 10 mL/second for a total of 30 mL. EDP Sample taken: LV 111/1,17; HR: 61 BPM; SpO2: 98%. Pullback taken: LV 111/0,16; AO 106/48(69); Mean: 6mmHg, Peak to Peak: 5mmHg, SEP: 19sec/min; HR: 61 BPM; SpO2: 98%. Catheter out. Physician reviewing films. A TR Band was successful obtaining hemostatsis at the Right Radial artery insertion site. Post Procedure: Pulses reassessed and unchanged. PERRLA. Strong, equal hand waterway traffic checker bilaterally. No VTE prophylaxis required. Contrast type used: Omnipaque 300 mgI/mL, 500 mL bottle. Post-op diagnosis: Chest Pain. Complications: None. [facility] Clinical Fraility Score: 2: Well. Link Cutter Indications: Suspected CAD. Chest Pain Symptom Assessment: Typical Angina Symptoms. Cardiovascular Instability: No. Medication's Wasted: Lidocaine 1% = 18 mL. Medication's Wasted: Heparin = 1000 units. Medication's Wasted: Nitro = 49.8 mg. Medication's Wasted: Other = Versed 1 mg. Medication's Wasted: Other = Fentanyl [address] Arauz contacted spouse. Total IV fluids: 298 mL. Estimated blood loss: 5mL-10mL. Vital chart was stopped. Procedure completed. Patient transferred by wheelchair to 1st floor. Site: Right Radial artery Sheath Size: 6 Fr Hemostasis Method: TR Band Hemostasis Success: Successful Procedure Medications Start: 7:09 AM Stop: 7:09 AM Medication: Versed Amount: 1 mg Route: I.V. Start: 7:09 AM Stop: 7:09 AM Medication: Fentanyl Amount: 50 mcg Route: I.V. Start: 7:17 AM Stop: 7:17 AM Medication: Verapamil Amount: 5 mg Route: I.A. Start: 7:17 AM Stop: 7:17 AM Medication: Versed Amount: 1 mg Route: I.V. Start: 7:17 AM Stop: 7:17 AM Medication: Fentanyl Amount: 50 mcg Route: I.V. Start: 7:18 AM Stop: 7:18 AM Medication: Nitrogylcerin Amount: 200 mcg Route: I.A. Start: 7:18 AM Stop: 7:18 AM Medication: 0.9% Saline Amount: 250 ml Route: I.V. bolus Start: 7:20 AM Stop: 7:20 AM Medication: Heparin Amount: 5000 units Route: I.V. Start: 7:30 AM Stop: 7:30 AM Medication: Versed Amount: 1 mg Route: I.V. Start: 7:30 AM Stop: 7:30 AM Medication: Fentanyl Amount: 50 mcg Route: I.V. I, the attending physician, have reviewed and verified all procedure medications. Yes, all medications given per verbal order History/Risk Factors Hypertension: Yes Dyslipidemia: Yes Diabetic Therapy: Oral Peripheral Arterial Disease (PAD): No Myocardial Infarction (KS): No Obesity: Yes Renal Disease: Yes Tobacco Use: Never Prior Interventions PCI: No CABG: No Valve Surgery: No Report Signatures Finalized by:Dr Stephanie Arauz MD [facility] on 11/16/2019 9:12:37 AM
[2019-11-16] MEDS: diphenhydrAMINE 50 mg Capsule PO (06:48)
--- NOTE | 2019-11-16 07:07 | W.PM.OPSUD ---
Surgery/Procedure H&P Update DATE OF PROCEDURE: November 16, 2019 DATE H&P PERFORMED: 11/13/19 H&P UPDATE INFORMATION: I have reviewed H&P completed within last 30 days, I have examined patient prior to procedure and No changes to prior documentation PREOP DIAGNOSIS: ASHD PLANNED PROCEDURE: Operation Date: 11/16/19 07:00 Proposed Procedures p Cardiac Catheterization(Left) - Stephanie Arauz MD PATIENT REASSESSED PRIOR TO SEDATION, WITH NO CHANGE NOTED: Yes PHYSICAL EXAM: alert, oriented x 3, clear to auscultation bilaterally and regular rate & rhythm AIRWAY EVAL/ANESTHESIA PLAN: normal airway, see other exam findings, ASA II, Monitored Anesthesia, Local Anesthesia, Risks, benefits & alternatives of sedation and/or procedure discussed and Patient agrees to continue as planned
--- NOTE | 2019-11-16 08:27 | PC.NURSE ---
Patient arrived to room at 0805 from CCL. 2 nurse verification of insertion site. TR band intact with 17 ml of air. Radial pulse palpable, no pain or tingling in hand. Neurovascular check WNL. Patient up to chair with call light in reach. Nurse to continue to monitor.
--- NOTE | 2019-11-16 10:56 | PC.CHAP ---
Pastoral Care Encounter/Spiritual Assessment Type of Contact [] Declined groundskeeping maintenance worker visit [] Patient/Family/Request visit [] Outpatient visit [] Follow-up visit [] Physician referral [] Code/Alert [x] Routine visit [] Staff referral [] Actively dying [] Patient sleeping [] Family support [] [] Out of room [] Palliative care [] [] Receiving care in room [] Pre-surgical visit [] Trauma [] Long length of stay [] ICU visit [] Other: Relational/Emotional Strength [x] Patient feels connected with others/family/visitors/staff [] Distress [] Loneliness/isolation [] Abandonment Spirituality of Patient [x] Person of Dorothy x] Attends Moravian of their Dorothy [x] Believes in Prayer x[] Reads Bible or Evangelical materials [] There are Spiritual issues to be addressed Accounting Recruiter Interventions [x] Prayer [x] Active listening [x] Non-anxious presence [x] Spiritual/emotional support [] Crisis/trauma care [] Spiritual counseling [] Bereavement support [] Provided bereavement packet [] Provided Bible/devotional materials [] Provided toy/stuffed animal, coloring book to patient or family member [] Provided Communion [] Anointing/[place] [] Salvation [x] Completed spiritual assessment [] Other: Impact on Illness or Injury [] Angry [] Fearful [] Anxious [] Often cries [] Exhaustion [] Unable to work [] Unable to attend caodaism [] Unable to walk/stand [] Unable to read [] Unable to drive [] Unable to eat/drink [] Unable to sleep [] Unable to be with family [] Patient intubated [] Other: Summary Patient is strong in his dorothy and trust of [employer]ras[employer]. Time spent with patient 10 minutes
--- NOTE | 2019-11-16 13:09 | PC.NURSE ---
TR band off at 1300. 17 ml of air removed slowly. Incision asymptomatic. Dressing CDI. Patient tolerated well.
--- NOTE | 2019-11-16 16:21 | PC.NURSE ---
Discharge instructions given per the physician's orders. Patient verbalized understanding of changes made to meds and verbalized understanding of the importance of keeping appointments. Patient did not have any further questions. has been contacted for discharge ride.
== END 2019-11-16 16:31 | disposition home or self-care (01) ==
LOC: CSU 08:16
PROVIDERS: Admitting Provider Internal Medicine Cardiovascular Disease; PCP Family Medicine; Visit Provider Internal Medicine Cardiovascular Disease
DX: I25.10 Atherosclerotic heart disease of native coronary artery without angina pectoris (principal); I48.91 Unspecified atrial fibrillation; E66.9 Obesity, unspecified; Z68.31 Body mass index [BMI] 31.0-31.9, adult; Z79.01 Long term (current) use of anticoagulants; N40.0 Benign prostatic hyperplasia without lower urinary tract symptoms; I11.0 Hypertensive heart disease with heart failure; I50.9 Heart failure, unspecified; E11.9 Type 2 diabetes mellitus without complications; Z79.84 Long term (current) use of oral hypoglycemic drugs; E78.2 Mixed hyperlipidemia; E03.9 Hypothyroidism, unspecified; Z82.49 Family history of ischemic heart disease and other diseases of the circulatory system; R94.39 Abnormal result of other cardiovascular function study; I50.23 Acute on chronic systolic (congestive) heart failure; I10 Essential (primary) hypertension; I48.0 Paroxysmal atrial fibrillation
CPT/HCPCS: 12345; 36415; 80053; 85025; 85610; 86850; 86900; 93452; C1769; C1887; C1894; G0378; J1644; J2001; J2250; J3010; J3490; J7030; Q0163; Q9967

== ENCOUNTER → 2019-11-23 09:05 | Outpatient (BNVA) | payer MEDICARE, SELFPAY | PROVIDERS: PCP Family Medicine; Visit Provider Nurse Practitioner Family | DX: I25.10 Atherosclerotic heart disease of native coronary artery without angina pectoris (principal); I25.119 Atherosclerotic heart disease of native coronary artery with unspecified angina pectoris | CPT/HCPCS: 80048 ==

== ENCOUNTER → 2020-03-29 12:10 | Outpatient (BNVA) | payer MEDICARE, SELFPAY | PROVIDERS: PCP Family Medicine; Visit Provider Surgery | DX: K57.90 Diverticulosis of intestine, part unspecified, without perforation or abscess without bleeding (principal) | CPT/HCPCS: 87635 ==

== ENCOUNTER 2020-04-04 09:04 | Day surgery (SDC) | payer MEDICARE, SELFPAY ==
[2020-04-03 13:56] VITALS: BMI 31.3
[2020-04-04 09:21] VITALS: BP 149/83; PULSE 75; RESP 18; TEMP 36.3; O2SAT 97
[2020-04-04 09:37] LABS: Glucose Point of Care 144 mg/dL (70-110)
[2020-04-04] MEDS: sodium chloride 0.9% 1,000 ML 30 ML IV (09:37)
--- NOTE | 2020-04-04 09:52 | W.PM.OPSUD ---
Surgery/Procedure H&P Update DATE OF PROCEDURE: April 04, 2020 DATE H&P PERFORMED: 03/22/20 H&P UPDATE INFORMATION: I have reviewed H&P completed within last 30 days, I have examined patient prior to procedure and No changes to prior documentation PREOP DIAGNOSIS: colon polyps PLANNED PROCEDURE: Operation Date: 04/04/20 10:30 Proposed Procedures p Excision of right arm lesion 20738 L98.9(Right) - Andrzej Costa MD s Colonoscopy 10451 Z86.010(Not Applicable) - Andrzej Costa MD
--- NOTE | 2020-04-04 09:54 | ANES.PREANE2 ---
Pre-Anesthetic Assessment Pre-Anesthetic Assessment: Height/Weight: Height 1.7 m Weight 90.718 kg Temp Pulse Resp BP Pulse Ox 97.4 F L 75 18 149/83 97 04/04/20 09:21 04/04/20 09:21 04/04/20 09:21 04/04/20 09:21 04/04/20 09:21 Preop Diagnosis: colon polyps Proposed Procedure: Operation Date: 04/04/20 10:30 Proposed Procedures p Excision of right arm lesion 64894 L98.9(Right) - Andrzej Costa MD s Colonoscopy 99287 Z86.010(Not Applicable) - Andrzej Costa MD Familial anesthetic complications: none Was Beta Errol taken within 24 hours: Yes Last intake: Intake Last Liquid Date 04/03/20 Last Liquid Time 21:00 Last Solid Date 04/02/20 Last Solid Time 21:00 Social: Social History: No alcohol and No tobacco Exam: Pre-Anes Outpt Exam: alert, oriented x 3, clear to auscultation bilaterally and regular rate & rhythm Airway: Cervical ROM: WNL MP: 3 Dentition: Chipped and Other (missing) CV/HEM: CV/HEM: Afib, CAD, CHF and HTN Comments: chronic intermittent atrial fibrillation, intermittent episodes of diastolic heart failure, left ventricular diastolic l dysfunction and mild coronary artery disease. sLHC showed mild diffuse coronary artery disease. T Metabolic: Metabolic: DM, Hyperlipidemia and Morbid obesity Anesthetic Plan: ASA status: 4 Anesthesia: MAC Risk of > 500 ml blood loss (7ml/kg in children): No Meds/Allergies Current Medications: Current Medications Generic Name Dose Route Start Last Admin Trade Name Freq PRN Reason Stop Dose Admin Sodium Chloride 1,000 mls @ 30 ml s/hr 04/04/20 08:15 04/04/20 09:37 Sodium Chloride 0.9% IV 04/05/20 08:14 30 mls/hr .Q24H ANURADHA Administration PFSH Anesthesia PFSH: Medical History Abnormal myocardial perfusion study Atrial fibrillation -Status post cardioversion June 2018 BPH (benign prostatic hyperplasia) -on Flomax Congestive heart failure -appears clinically compensated -has known hx of chronic HFrEF -last Echo (06/2018): EF=35%, global LV hypokinesis, trace to mild OR, trace to mild TR, mild pulmonary HTN -continue Lasix Coronary artery disease Diabetes mellitus type 2, noninsulin dependent -can resume metformin on d/c Diverticulosis Essential hypertension Hypothyroid -continue levothyroxine Surgical History H/O colonoscopy 2019 H/O esophagogastroduodenoscopy 2019 History of cataract surgery History of lumbar laminectomy Hx of cholecystectomy Family History Family/Other CAD (coronary artery disease) Social History Smoking and tobacco status: never smoked Alcohol intake: never Household members: spouse Marital status: Current occupational status: retired History of recent travel: No Data Anesthesia Other Labs: Laboratory Results - last 48 hr 04/04/20 09:33 POC Glucose 144 Cardiac Studies: No Data to Display
[2020-04-04] MEDS: lidocaine 1% INJ 20 mL SUBCUT (13:50)
--- NOTE | 2020-04-04 14:14 | PM.OP ---
Operative Report Date of procedure: April 04, 2020 Pre-op Diagnosis: 1. History of colon polyps 2. Bleeding skin lesion right arm Post-op Diagnosis: Ascending colon polyp x3 removed with hot snare Descending colon polyp removed with hot snare Skin lesion right arm Procedure Done: Colonoscopy with polypectomy using cold biopsy forceps Colonoscopy with polypectomy using hot snare Excision of skin lesion right arm Specimens removed/disposition: Ascending colon polyp x3 Descending colon polyp Skin lesion right arm Surgeon: Andrzej Costa Surgeon: Anesthesia: MAC Condition: stable Disposition: PACU Procedure: The patient was taken to the operating room and placed in left lateral position under MAC. The right arm was prepped and draped in a sterile manner. 5 cc of 1% lidocaine with 0.5% Marcaine was infiltrated around the lesion. Using 15 blade, an elliptical incision was made around the lesion and specimen was excised from the surrounding subcutaneous tissue using electrocautery. Medial and lateral skin flaps were raised in the subcutaneous tissues approximated using interrupted 3-0 Vicryl suture and skin was closed using running subcuticular 4-0 Monocryl suture and surgical glue. Digital rectal exam revealed internal hemorrhoids A colonoscope was introduced and advanced up to cecum and slowly withdrawn. The colon prep was fair Cecum: Normal Ascending colon: 1 cm and 7 mm pedunculated polyp removed with a hot snare. Another 5 mm polyp removed with a hot snare. The 1 cm polyp could not be retrieved and the patient has been given sieve to retrieve the specimen Transverse colon: Normal Descending colon: Family made a sessile polyp removed with cold biopsy forceps Sigmoid colon: Moderate diverticulosis Rectum: Internal hemorrhoids
[2020-04-04 14:21] VITALS: BP 168/68; PULSE 66; RESP 18; TEMP 36.4; O2SAT 97
[2020-04-04 14:35] VITALS: BP 123/69; PULSE 65; RESP 18; TEMP 36.2; O2SAT 96
--- NOTE | 2020-04-04 15:52 | ANE.PACU2 ---
Inpatient post-anesthesia follow up: Airway intact: Yes Vital signs: Temperature 97.1 F Pulse Rate 65 Respiratory Rate 18 Blood Pressure 123/69 Pulse Oximetry 96 Oxygen Delivery Me thod Room Air Oxygen Flow Rate Fraction of Inspir ed Oxygen Hydration adequate: Yes Nausea and vomiting: No Pain level: 1 Mental status: Baseline
== END 2020-04-04 15:00 | disposition home or self-care (01) ==
PROVIDERS: PCP Family Medicine; Visit Provider Surgery
PROC: (CPT 11402; principal; 2020-04-04 10:30)
PROC: 0DJD8ZZ Inspection of Lower Intestinal Tract, Via Natural or Artificial Opening Endoscopic (ICD-10-PCS; CPT 45378; 2020-04-04 10:30)
DX: K63.5 Polyp of colon (principal); D18.01 Hemangioma of skin and subcutaneous tissue; K57.30 Diverticulosis of large intestine without perforation or abscess without bleeding; K64.8 Other hemorrhoids; I48.91 Unspecified atrial fibrillation; I25.10 Atherosclerotic heart disease of native coronary artery without angina pectoris; I11.0 Hypertensive heart disease with heart failure; I50.9 Heart failure, unspecified; E11.9 Type 2 diabetes mellitus without complications; E78.5 Hyperlipidemia, unspecified; E66.01 Morbid (severe) obesity due to excess calories; Z68.31 Body mass index [BMI] 31.0-31.9, adult; E03.9 Hypothyroidism, unspecified
CPT/HCPCS: 11402; 12345; 36416; 45380; 45385; 82962; 88304; 88305; J2704; J3490; J7030

== ENCOUNTER 2020-05-12 10:40 | Emergency (ER) | payer MEDICARE, SELFPAY ==
[2020-05-12] VITALS (11 sets, daily range): BP systolic 131–142; BP diastolic 64–82; PULSE 64–67; RESP 18–23; TEMP 36.7; O2SAT 90–96; BMI 30.4
--- NOTE | 2020-05-12 10:42 | XRR_ITS ---
PROCEDURE INFORMATION: Exam: XR Chest, 1 View Exam date and time: 05/12/2020 10:52 AM Age: 80 years old Clinical indication: Chest pain TECHNIQUE: Imaging protocol: XR of the chest Views: 1 view. COMPARISON: CR XR chest 1V portable [id number] 09/30/2019 11:59 AM FINDINGS: Lungs: Unremarkable. No consolidation. Pleural space: Unremarkable. No pleural effusion. No pneumothorax. Heart/Mediastinum: Unremarkable. No cardiomegaly. Bones/joints: Unremarkable. XR/XR chest 1V portable [id number] IMPRESSION: No acute findings.
--- NOTE | 2020-05-12 10:44 | ECG_ITS ---
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 Measurements Intervals [place] Rate: 67 P: 59 NH: 178 QRS: 22 QRSD: 101 T: 64 QT: 418 QTc: 442 Interpretive Statements SINUS RHYTHM Compared to ECG 09/30/2019 18:11:07 T-wave abnormality no longer present Electronically Signed On 05-13-2020 16:55:18 LIMO DRIVER by Dario Quijano M.D. [email or web address]
--- NOTE | 2020-05-12 10:46 | ED_ITS ---
HPI - Chest Pain General: Chief Complaint: Chest Pain Stated Complaint: CP Time Seen by Provider: 05/12/20 10:42 Source: patient Mode of arrival: ambulatory Limitations: no limitations History of Present Illness: HPI narrative: 80-year-old male with history of paroxysmal atrial fibrillation, hypertension, CHF, and hypothyroidism presents with complaints of chest pain that started approximately 1 hour SWITCHMAN while he was sitting in [employer]. Continuous, retrosternal, sharp, stabbing, pressure. Associated nausea, diaphoresis, pallor. No radiation. On the way here he took a sublingual nitroglycerin, which improved his pain. No recent fever, worsening cough or congestion. He did have Covid several months ago, and says he has not felt well since then. Denies palpitations or syncope. No increased lower extremity edema. Denies abdominal pain. Associated symptoms: Reports dyspnea and nausea; Deny abdominal pain, fever(s), palpitations or vomiting Review of Systems General: Reports: 10 or more systems reviewed and unremarkable except in HPI and below Const: Denies: fever(s), chills, body aches, change in appetite or change in weight Eyes: Denies: change in vision or blurry vision Card: Reports: chest pain, swelling of feet/ankles, lightheadedness, dyspnea on exertion and orthopnea; Denies: palpitations or irregular heart rhythm Resp: Reports: dyspnea, non-productive cough and chest congestion; Denies: pain on inspiration GI: Reports: nausea; Denies: abdominal pain, vomiting, heartburn, bloating or GI cramping : Denies: difficulty urinating, dysuria or urinary hesitancy Musc: Reports: extremity swelling; Denies: neck pain, back pain or extremity pain Skin/Breast: Denies: rash, pruritus or erythema Neuro: Denies: headache(s), numbness in extremities, weakness in extremities or confusion Nikos/Lymph: Reports: easy bruising and easy bleeding PFS ED PFSH: Medical History Abnormal myocardial perfusion study Atrial fibrillation -Status post cardioversion June 2018 BPH (benign prostatic hyperplasia) -on Flomax Congestive heart failure -appears clinically compensated -has known hx of chronic HFrEF -last Echo (06/2018): EF=35%, global LV hypokinesis, trace to mild NV, trace to mild TR, mild pulmonary HTN -continue Lasix Coronary artery disease Diabetes mellitus type 2, noninsulin dependent -can resume metformin on d/c Diverticulosis Essential hypertension History of colon polyps Hypothyroid -continue levothyroxine Surgical History H/O colonoscopy (04/04/20) H/O esophagogastroduodenoscopy 2019 History of cataract surgery History of lumbar laminectomy Hx of cholecystectomy Family History Family/Other CAD (coronary artery disease) Social History Smoking and tobacco status: never smoked Alcohol intake: never Household members: spouse Marital status: Current occupational status: retired History of recent travel: No Physical Exam Const: COMMON NORMALS: alert GENERAL APPEARANCE: anxious and ill appearing; not diaphoretic NUTRITIONAL APPEARANCE: overweight ORIENTATION/CONSCIOUSNESS: Yes awake, Yes oriented to person and Yes oriented to time HENMT: COMMON NORMALS: normocephalic and atraumatic HEAD & SCALP: normocephalic and atraumatic FACE & SINUS: normal facial exam and face symmetric Eye: COMMON NORMALS: Equal, round and reactive pupils present, EOMs intact bilaterally, conjunctivae normal and no scleral icterus GENERAL EYE: appearance normal, both eyes and all related structures CONJUNCTIVA: Yes conjunctivae normal PUPIL: Yes Equal, round and reactive pupils present Neck/C-Spine: COMMON NORMALS: full ROM and no lymphadenopathy GENERAL: Yes normal visual inspection, No anterior neck swelling, No lymphadenopathy, No tender and Yes JVD Lymph: LYMPHATIC: no lymphadenopathy noted Chest: COMMONS NORMALS: normal inspection of the chest and normal palpation of entire chest wall Resp: EFFORT & INSPECTION: Yes labored AUSCULTATION: diminished lung sounds and bronchovesicular breath sounds Cardio: COMMON NORMALS: regular rate, regular rhythm, S1 normal heart sound present and S2 normal heart sound present JUGULAR VENOUS DISTENTION: JVD positive to the level of the angle of the jaw RATE: regular rate RHYTHM: regular rhythm HEART SOUNDS: S1 normal heart sound present and S2 normal heart sound present BRUITS: no abdominal aortic bruits GI: COMMON NORMALS: Soft to palpation INSPECTION: Yes abdominal distension and Yes central obesity PALPATION: Yes Soft to palpation, No Tenderness to palpation present (GI), No Guarding due to palpation present (GI), No Rigid due to palpation and No Ascites present Extremity: GENERAL: No cyanosis, No deformity, Yes edema and No mottling Neuro: SENSORIUM/ORIENTATION: Yes alert, Yes oriented to person and Yes oriented to time CRANIAL NERVES: Yes CN normal except as noted SPEECH: speech normal Skin: COMMON NORMALS: no rashes or lesions noted GENERAL SKIN EXAM: no rashes or lesions noted, no erythema, no induration, no jaundice, no petechiae and no purpura Course Vital Signs: Vital signs: Vital Signs Temperature 98.1 F 05/12/20 10:43 Pulse Rate 66 05/12/20 14:34 Respiratory Rate 20 H 05/12/20 14:34 Blood Pressure 142/82 05/12/20 14:34 Pulse Oximetry 96 05/12/20 14:34 MDM - Chest Pain MDM Narrative: Medical decision making narrative: 80-year-old male with a history of diabetes, atrial fibrillation, hypertension presents with chest pain for the past hour. Initial EKG did not show any changes compared to prior. Vital signs stable. Patient did start having recurrent severe pain shortly after being set up for exam and x-ray. He then developed nausea and vomiting. Morphine, Zofran, and another dose of sublingual nitro was administered. Repeat EKG did not show any significant changes. Baseline troponin 12, 2-hour repeat 11.51 Chest x-ray does not show any acute abnormalities. IV GI meds given in case there is a component of esophagitis; he felt much better following treatment. We will recommend that he take Protonix daily for the next 4 weeks Instructed to call his navigating officer tomorrow and request a follow-up. At time of discharge, the patient appeared much better, no distress, not having any pain. He has not vomited in several hours, was tolerating p.o. O2 sats were normal on room air. Differential Diagnosis: Cardiac arrest differential diagnosis: Likely acute massive pulmonary embolism and acute myocardial infarction Medical Records: Attestation: I reviewed the patient's medical records. Lab Data: Attestation: I reviewed the patient's lab results. Labs: Lab Results 05/12/20 05/12/20 05/12/20 Range/Units 10:51 10:51 10:51 WBC 7.6 (4.0-10.0) 10^3/ uL RBC 4.91 (4.1-5.3) 10^6/u L Hgb 13.9 (11.7-16.6) g/dL Hct 44.0 (42.0-52.0) % MCV 89.6 (80-94) fL MCH 28.3 (28.0-34.0) pg MCHC 31.6 (30.0-36.0) g/dL RDW 14.1 (12.1-15.1) % Plt Count 286 (130-400) 10^3/c mm MPV 9.6 (7.4-10.4) fL Neut % (Auto) 74.3 % Lymph % (Auto) 16.3 % [place] % (Auto) 6.8 % Eos % (Auto) 1.4 % Baso % (Auto) 0.7 % Neut # (Auto) 5.67 (1.8-7.7) 10^3/u L Lymph # (Auto) 1.2 (0.8-4.8) 10^3/u L [place] # (Auto) 0.5 (0.2-0.9) 10^3/u L Eos # (Auto) 0.1 (0.0-0.8) 10^3/u L Baso # (Auto) 0.1 (0.0-0.1) 10^3/u L Nucleated RBC % (a uto) 0 % Nucleated RBCs # 0.0 /100WBC PT 19.30 H (12.1-14.9) SECO NDS INR 1.57 H (0.8-1.2) Sodium 141 (136-145) mmol/L Potassium 4.7 (3.5-5.1) mmol/L Chloride 102 (98-107) mmol/L Carbon Dioxide 28 (22-29) mmol/L Anion Gap 15.7 (5-19) BUN 16 (8-23) mg/dL Creatinine 1.5 H (0.7-1.2) mg/dL GFR Calculation Not Reportable Glucose 145 H (65-115) mg/dL Calculated Osmolal ity 296 H (285-295) mOsm/k g Calcium 9.0 (8.5-10.5) mg/dL Magnesium 1.8 (1.7-2.3) mg/dL Total Bilirubin 0.5 (0.15-1.2) mg/dL AST 23 (0-40) U/L ALT 24 (0-41) U/L Alkaline Phosphata se 114 (40-130) IU/L Troponin T Baselin e (0-15) ng/L Troponin T 120 Min [place] (0-15) ng/L Delta Troponin T (0-10) ABS# NT-Pro-B Natriuret Pep 500 H (0-450) pg/mL Total Protein 6.8 (6.6-8.7) g/dL Albumin 4.0 (3.5-5.2) g/dL Globulin 2.8 (1.3-4.6) g/dL Urine Color (Yellow) Urine Appearance (CLEAR) Urine pH (5-7) Ur Specific Gravit y (1.005-1.030) Urine Protein (Negative) Urine Glucose (UA) (Normal) Urine Ketones (Negative) Urine Blood (Negative) Urine Nitrate (Negative) Urine Bilirubin (Negative) Urine Urobilinogen (Negative) mg/dL Ur Leukocyte Lisa ase (Negative) Urine RBC (0-2) /hpf Urine WBC (0-5) /hpf Ur Squamous Epith Cells (0-5) /hpf Amorphous Sediment Urine Bacteria (NONE) /hpf Urine Mucus /hpf 05/12/20 05/12/20 05/12/20 Range/Units 10:51 12:35 12:47 WBC (4.0-10.0) 10^3/ uL RBC (4.1-5.3) 10^6/u L Hgb (11.7-16.6) g/dL Hct (42.0-52.0) % MCV (80-94) fL MCH (28.0-34.0) pg MCHC (30.0-36.0) g/dL RDW (12.1-15.1) % Plt Count (130-400) 10^3/c mm MPV (7.4-10.4) fL Neut % (Auto) % Lymph % (Auto) % [place] % (Auto) % Eos % (Auto) % Baso % (Auto) % Neut # (Auto) (1.8-7.7) 10^3/u L Lymph # (Auto) (0.8-4.8) 10^3/u L [place] # (Auto) (0.2-0.9) 10^3/u L Eos # (Auto) (0.0-0.8) 10^3/u L Baso # (Auto) (0.0-0.1) 10^3/u L Nucleated RBC % (a uto) % Nucleated RBCs # /100WBC PT (12.1-14.9) SECO NDS INR (0.8-1.2) Sodium (136-145) mmol/L Potassium (3.5-5.1) mmol/L Chloride (98-107) mmol/L Carbon Dioxide (22-29) mmol/L Anion Gap (5-19) BUN (8-23) mg/dL Creatinine (0.7-1.2) mg/dL GFR Calculation Glucose (65-115) mg/dL Calculated Osmolal ity (285-295) mOsm/k g Calcium (8.5-10.5) mg/dL Magnesium (1.7-2.3) mg/dL Total Bilirubin (0.15-1.2) mg/dL AST (0-40) U/L ALT (0-41) U/L Alkaline Phosphata se (40-130) IU/L Troponin T Baselin e 12 (0-15) ng/L Troponin T 120 Min [place] 10.51 (0-15) ng/L Delta Troponin T -1.49 L (0-10) ABS# NT-Pro-B Natriuret Pep (0-450) pg/mL Total Protein (6.6-8.7) g/dL Albumin (3.5-5.2) g/dL Globulin (1.3-4.6) g/dL Urine Color Yellow (Yellow) Urine Appearance Hazy A (CLEAR) Urine pH 5 (5-7) Ur Specific Gravit y 1.020 (1.005-1.030) Urine Protein Neg (Negative) Urine Glucose (UA) Trace H (Normal) Urine Ketones 1+ H (Negative) Urine Blood Neg (Negative) Urine Nitrate Negative (Negative) Urine Bilirubin Neg (Negative) Urine Urobilinogen 1 H (Negative) mg/dL Ur Leukocyte Lisa ase Negative (Negative) Urine RBC None (0-2) /hpf Urine WBC None (0-5) /hpf Ur Squamous Epith Cells 5-10 H (0-5) /hpf Amorphous Sediment Not Reportable Urine Bacteria Trace (NONE) /hpf Urine Mucus 2+ /hpf EKG Data^: EKG 1: Attestation: I personally reviewed and interpreted this EKG as follows: EKG interpretation date: 05/12/20 EKG interpretation time: 10:50 Prior EKG tracings: available for review Interpretation: Normal sinus rhythm, rate 67, Normal axis NV [address] segment elevation or depression. Compared to previous EKG dated 09/30/2019-no significant change. EKG 2: Attestation: I personally reviewed and interpreted this EKG as follows: EKG interpretation date: 05/12/20 EKG interpretation time: 11:32 Prior EKG tracings: available for review Interpretation: Normal sinus rhythm, rate 62, NV 180 Normal axis QT [address] changes compared to previous. Discharge Plan Discharge Patient Disposition: Home Clinical Impression: Chest pain not due to acute coronary syndrome, Chest pain due to GERD Nausea & vomiting Qualifiers: Vomiting type: unspecified Vomiting Intractability: non-intractable Qualified Code(s): R11.2 - Nausea with vomiting, unspecified Condition: Stable Prescriptions: New Protonix 40 mg tablet,delayed release (DR/EC) 40 mg PO DAILY 28 Days RF: 0 No Action magnesium oxide 400 mg magnesium capsule 400 mg PO DAILY@06 RF: 0 nitroglycerin [Nitrostat] 0.4 mg tablet, sublingual 0.4 mg SUBLINGUAL Q5M PRN (Reason: Chest Pain) RF: 0 tamsulosin [Flomax] 0.4 mg capsule 0.8 mg PO BEDTIME@18 RF: 0 warfarin 2 mg tablet 2 mg PO DIRECTED RF: 0 Hold Instructions: Resume on 11/17/19. warfarin 3 mg tablet 3 mg PO DIRECTED Qty: 90 RF: 3 Hold Instructions: Resume on 11/17/19. metformin 850 mg tablet 850 mg PO DAILY@06 RF: 0 Hold Instructions: Resume on 11/19/19. metoprolol succinate 100 mg tablet extended release 24 hr 100 mg PO BEDTIME@18 RF: 0 lisinopril 10 mg tablet 10 mg PO BEDTIME@18 RF: 0 furosemide 40 mg tablet 40 mg PO DAILY@06 RF: 0 atorvastatin 40 mg tablet 40 mg PO DAILY@18 RF: 0 amiodarone 200 mg tablet 200 mg PO DAILY@06 RF: 0 potassium chloride 20 mEq tablet,ER particles/crystals 20 meq PO DAILY@06 RF: 0 levothyroxine 50 mcg capsule 50 mcg PO DAILY@06 RF: 0 Discharge Orders: Discharge ED (Routine); Ordered 05/12/20 Ordered By: Noemí Aponte Referrals: Bassam Hou MD [Primary Care Provider] - Discharge Diet: Usual diet Discharge Activity: Resume usual activity Patient Instructions: Esophageal Spasm (ED), Noncardiac Chest Pain (ED) Activity Restrictions/Additional Instructions: Make sure to schedule follow-up appointment with your primary care doctor in the next 3 to 5 days. Return immediately to the ER if you develop recurrent chest pain, difficulty breathing, nausea or vomiting, fever, or any other concerning symptoms. Coding Level of Care Code ED Fitness And Wellness Director for [facility] Exam Comprehensive
[2020-05-12] MEDS: morphine 4 mg/mL SDV 1 mL IVP (11:14)
[2020-05-12] MEDS: ondansetron 2 mg/ML SDV 2 mL 4 MG IVP (11:14)
[2020-05-12] MEDS: nitroglycerin 0.4 mg sublingual Tablet SUBLINGUAL ×2 (11:17→11:30)
[2020-05-12 11:19] LABS: INR 1.57 (0.8-1.2)
[2020-05-12 11:24] LABS: Basophils # 0.1 10^3/uL (0.0-0.1); Basophils % 0.7 %; Eosinophils # 0.1 10^3/uL (0.0-0.8); Eosinophils % 1.4 %; Hemoglobin 13.9 g/dL (11.7-16.6); Lymphocytes # 1.2 10^3/uL (0.8-4.8); Lymphocytes % 16.3 %; Mean Corpuscular HGB Conc 31.6 g/dL (30.0-36.0); Mean Corpuscular Hemoglobin 28.3 pg (28.0-34.0); Mean Corpuscular Volume 89.6 fL (80-94); Mean Platelet Volume 9.6 fL (7.4-10.4); Monocytes # 0.5 10^3/uL (0.2-0.9); Monocytes % 6.8 %; Neutrophils # 5.67 10^3/uL (1.8-7.7); Neutrophils % 74.3 %; Nucleated Red Blood Cells % 0 %; Platelet Count 286 10^3/cmm (130-400); Red Blood Count 4.91 10^6/uL (4.1-5.3); Red Cell Distribution Width 14.1 % (12.1-15.1); White Blood Count 7.6 10^3/uL (4.0-10.0)
[2020-05-12 11:29] LABS: Troponin(5th) Baseline 12 ng/L (0-15)
[2020-05-12 11:38] LABS: Alanine Aminotransferase 24 U/L (0-41); Alkaline Phosphatase 114 IU/L (40-130); Anion Gap 15.7 (5-19); Aspartate Amino Transferase 23 U/L (0-40); Blood Urea Nitrogen 16 mg/dL (8-23); Carbon Dioxide 28 mmol/L (22-29); Chloride 102 mmol/L (98-107); Globulin 2.8 g/dL (1.3-4.6); Glucose 145 mg/dL (65-115); Magnesium 1.8 mg/dL (1.7-2.3); NT Pro B Type Natriuretic Pept 500 pg/mL (0-450); Osmolality Calculated 296 mOsm/kg (285-295); Potassium 4.7 mmol/L (3.5-5.1); Sodium 141 mmol/L (136-145); Total Bilirubin 0.5 mg/dL (0.15-1.2); Total Protein 6.8 g/dL (6.6-8.7)
[2020-05-12] MEDS: morphine 4 mg/mL SDV 1 mL 6 MG IVP (12:13)
[2020-05-12] MEDS: famotidine 20 mg/2 mL INJ 40 MG IVP (12:15)
[2020-05-12] MEDS: pantoprazole 40 MG in sodium chloride 0.9% (plus) 100 ML 20 MG IV (12:17)
--- NOTE | 2020-05-12 12:44 | ECG_ITS ---
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 Measurements Intervals [place] Rate: 62 P: 59 RI: 180 QRS: 15 QRSD: 96 T: 66 QT: 346 QTc: 352 Interpretive Statements SINUS RHYTHM NONSPECIFIC T-WAVE ABNORMALITY Compared to ECG 05/12/2020 10:46:00 T-wave abnormality now present Electronically Signed On 05-13-2020 17:03:30 HYDROELECTRIC OPERATOR by Dario Quijano M.D. [email or web address]
[2020-05-12 13:26] LABS: Troponin 5 2HR 10.51 ng/L (0-15)
[2020-05-12 13:34] LABS: Troponin 5 2HR Delta -1.49 ABS# (0-10)
[2020-05-12 13:44] LABS: Add Urine Microscopic? YES; Bilirubin Urine Neg (Negative); Blood Urine Neg (Negative); Glucose Urine UA Trace (Normal); Ketones Urine 1+ (Negative); Leukocyte Esterase Urine Negative (Negative); Nitrate Urine Negative (Negative); Protein Urine Neg (Negative); Urine Appearance Hazy (CLEAR); Urine Color Yellow (Yellow); Urobilinogen Urine 1 mg/dL (Negative); pH Urine 5 (5-7)
[2020-05-12 13:55] LABS: Bacteria Urine TRACE /hpf; Mucus Urine 2+ /hpf
[2020-05-12 13:56] LABS: Add Urine Culture? No
== END 2020-05-12 14:34 | disposition home or self-care (01) ==
PROVIDERS: Emergency Provider Family Medicine; PCP Family Medicine
DX: K21.9 Gastro-esophageal reflux disease without esophagitis (principal); R11.2 Nausea with vomiting, unspecified; Z79.01 Long term (current) use of anticoagulants; I25.2 Old myocardial infarction; I48.91 Unspecified atrial fibrillation; I11.0 Hypertensive heart disease with heart failure; I50.9 Heart failure, unspecified; I25.10 Atherosclerotic heart disease of native coronary artery without angina pectoris; E11.9 Type 2 diabetes mellitus without complications
CPT/HCPCS: 12345; 36415; 71045; 80053; 81001; 83735; 83880; 84484; 85025; 85610; 93005; 96365; 96366; 96375; 96376; 99283; 99284; C9113; J2270; J2405; J3490

== ENCOUNTER → 2021-07-25 09:38 | Outpatient (BNVA) | payer MEDICARE, SELFPAY | PROVIDERS: PCP Family Medicine; Visit Provider Internal Medicine Cardiovascular Disease | DX: Z79.01 Long term (current) use of anticoagulants (principal) ==

== ENCOUNTER → 2021-07-29 15:58 | Outpatient (BNVA) | payer MEDICARE, SELFPAY | PROVIDERS: PCP Family Medicine; Visit Provider Internal Medicine Cardiovascular Disease | DX: Z79.01 Long term (current) use of anticoagulants (principal) ==

== ENCOUNTER → 2021-08-04 09:47 | Outpatient (BNVA) | payer MEDICARE, SELFPAY | PROVIDERS: PCP Family Medicine; Visit Provider Internal Medicine Cardiovascular Disease | DX: R06.02 Shortness of breath (principal); I11.0 Hypertensive heart disease with heart failure; I50.23 Acute on chronic systolic (congestive) heart failure; I50.33 Acute on chronic diastolic (congestive) heart failure | CPT/HCPCS: 80048; 80061; 83880; 99214 ==

== ENCOUNTER → 2021-08-06 09:30 | Outpatient (BNVA) | payer MEDICARE, SELFPAY | PROVIDERS: PCP Family Medicine; Visit Provider Internal Medicine Cardiovascular Disease | DX: Z79.01 Long term (current) use of anticoagulants (principal) ==

== ENCOUNTER → 2021-08-12 08:47 | Outpatient (BNVA) | payer MEDICARE, SELFPAY | PROVIDERS: PCP Family Medicine; Visit Provider Internal Medicine Cardiovascular Disease | DX: I48.91 Unspecified atrial fibrillation (principal) ==

== ENCOUNTER → 2021-08-22 08:29 | Outpatient (BNVA) | payer MEDICARE, SELFPAY | PROVIDERS: PCP Family Medicine; Visit Provider Internal Medicine Cardiovascular Disease | DX: Z79.01 Long term (current) use of anticoagulants (principal) ==

== ENCOUNTER → 2021-09-01 15:59 | Outpatient (BNVA) | payer MEDICARE, SELFPAY | PROVIDERS: PCP Family Medicine; Visit Provider Internal Medicine Cardiovascular Disease | DX: Z79.01 Long term (current) use of anticoagulants (principal) ==

== ENCOUNTER → 2021-09-10 08:46 | Outpatient (BNVA) | payer MEDICARE, SELFPAY | PROVIDERS: PCP Family Medicine; Visit Provider Internal Medicine Cardiovascular Disease | DX: Z79.01 Long term (current) use of anticoagulants (principal) ==

== ENCOUNTER → 2021-09-17 09:20 | Outpatient (BNVA) | payer MEDICARE, SELFPAY | PROVIDERS: PCP Family Medicine; Visit Provider Internal Medicine Cardiovascular Disease | DX: Z79.01 Long term (current) use of anticoagulants (principal) ==

== ENCOUNTER → 2021-09-26 13:36 | Outpatient (BNVA) | payer MEDICARE, SELFPAY | PROVIDERS: PCP Family Medicine; Visit Provider Internal Medicine Cardiovascular Disease | DX: Z79.01 Long term (current) use of anticoagulants (principal) ==

== ENCOUNTER → 2021-09-30 12:44 | Outpatient (BNVA) | payer MEDICARE, SELFPAY | PROVIDERS: PCP Family Medicine; Visit Provider Internal Medicine Cardiovascular Disease | DX: Z79.01 Long term (current) use of anticoagulants (principal) ==

== ENCOUNTER → 2021-10-09 09:49 | Outpatient (BNVA) | payer MEDICARE, SELFPAY | PROVIDERS: PCP Family Medicine; Visit Provider Internal Medicine Cardiovascular Disease | DX: Z79.01 Long term (current) use of anticoagulants (principal) ==

== ENCOUNTER → 2021-10-17 10:22 | Outpatient (BNVA) | payer MEDICARE, SELFPAY | PROVIDERS: PCP Family Medicine; Visit Provider Internal Medicine Cardiovascular Disease | DX: Z79.01 Long term (current) use of anticoagulants (principal) ==

== ENCOUNTER → 2021-10-22 09:18 | Outpatient (BNVA) | payer MEDICARE, SELFPAY | PROVIDERS: PCP Family Medicine; Visit Provider Internal Medicine Cardiovascular Disease | DX: Z79.01 Long term (current) use of anticoagulants (principal) ==

== ENCOUNTER → 2021-10-29 09:38 | Outpatient (BNVA) | payer MEDICARE, SELFPAY | PROVIDERS: PCP Family Medicine; Visit Provider Internal Medicine Cardiovascular Disease | DX: Z79.01 Long term (current) use of anticoagulants (principal) ==

== ENCOUNTER → 2021-11-05 16:32 | Outpatient (BNVA) | payer MEDICARE, SELFPAY | PROVIDERS: PCP Family Medicine; Visit Provider Internal Medicine Cardiovascular Disease | DX: Z79.01 Long term (current) use of anticoagulants (principal) ==

== ENCOUNTER → 2021-11-13 10:39 | Outpatient (BNVA) | payer MEDICARE, SELFPAY | PROVIDERS: PCP Family Medicine; Visit Provider Internal Medicine Cardiovascular Disease | DX: Z79.01 Long term (current) use of anticoagulants (principal) ==

== ENCOUNTER → 2021-11-21 10:36 | Outpatient (BNVA) | payer MEDICARE, SELFPAY | PROVIDERS: PCP Family Medicine; Visit Provider Internal Medicine Cardiovascular Disease | DX: Z79.01 Long term (current) use of anticoagulants (principal) ==

== ENCOUNTER → 2021-11-26 08:54 | Outpatient (BNVA) | payer MEDICARE, SELFPAY | PROVIDERS: PCP Family Medicine; Visit Provider Internal Medicine Cardiovascular Disease | DX: Z79.01 Long term (current) use of anticoagulants (principal) ==

== ENCOUNTER → 2021-12-03 09:55 | Outpatient (BNVA) | payer MEDICARE, SELFPAY | PROVIDERS: PCP Family Medicine; Visit Provider Internal Medicine Cardiovascular Disease | DX: Z79.01 Long term (current) use of anticoagulants (principal) ==

== ENCOUNTER → 2021-12-09 10:19 | Outpatient (BNVA) | payer MEDICARE, SELFPAY | PROVIDERS: PCP Family Medicine; Visit Provider Internal Medicine Cardiovascular Disease | DX: Z79.01 Long term (current) use of anticoagulants (principal) ==

== ENCOUNTER → 2022-03-24 15:09 | Outpatient (BNVA) | payer MEDICARE, SELFPAY | PROVIDERS: PCP Family Medicine; Visit Provider Internal Medicine Cardiovascular Disease | DX: I25.119 Atherosclerotic heart disease of native coronary artery with unspecified angina pectoris (principal); I11.0 Hypertensive heart disease with heart failure; I50.23 Acute on chronic systolic (congestive) heart failure; E11.9 Type 2 diabetes mellitus without complications; E78.2 Mixed hyperlipidemia; I48.0 Paroxysmal atrial fibrillation; Z79.01 Long term (current) use of anticoagulants; Z79.84 Long term (current) use of oral hypoglycemic drugs | CPT/HCPCS: 93005; 99204; 99214 ==

== ENCOUNTER 2022-03-25 09:03 | Outpatient (CLI) | payer MEDICARE, SELFPAY ==
[2022-03-25 09:58] LABS: Alanine Aminotransferase < 5 U/L (0-41); Albumin Level 3.8 g/dL (3.5-5.2); Alkaline Phosphatase 96 U/L (40-130); Anion Gap 13.7 (5-19); Aspartate Amino Transferase 19 U/L (0-40); Blood Urea Nitrogen 14 mg/dL (8-23); Calcium 9.1 mg/dL (8.5-10.5); Carbon Dioxide 30 mmol/L (22-29); Chloride 95 mmol/L (98-107); Globulin 3.2 g/dL (1.3-4.6); Glucose 129 mg/dL (65-115); Osmolality Calculated 280 mOsm/kg (285-295); Potassium 4.7 mmol/L (3.5-5.1); Sodium 134 mmol/L (136-145); Thyroid Stimulating Hormone 2.24 uIU/mL (0.27-4.20); Total Bilirubin 0.6 mg/dL (0.15-1.2)
== END 2022-03-25 09:04 | disposition home or self-care (01) ==
LOC: LAB 09:05
PROVIDERS: PCP Family Medicine; Visit Provider Internal Medicine Cardiovascular Disease
DX: R06.02 Shortness of breath (principal); E78.5 Hyperlipidemia, unspecified; I48.0 Paroxysmal atrial fibrillation; N18.9 Chronic kidney disease, unspecified
CPT/HCPCS: 36415; 80048; 80076; 84443

== ENCOUNTER 2022-08-12 16:04 | Emergency (ER) | payer MEDICARE, SELFPAY ==
[2022-08-12 16:15] VITALS: BP 113/64; PULSE 69; RESP 17; TEMP 36.6; O2SAT 94; BMI 30.1
--- NOTE | 2022-08-12 16:22 | ECG_ITS ---
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 Measurements Intervals [place] Rate: 70 P: 88 NV: 196 QRS: 17 QRSD: 101 T: 84 QT: 334 QTc: 362 Interpretive Statements SINUS RHYTHM NONSPECIFIC T-WAVE ABNORMALITY Compared to ECG 05/12/2020 11:28:03 No significant changes Electronically Signed On 08-12-2022 23:55:03 CDT by Stephanie Arauz M.D. [id number]
--- NOTE | 2022-08-12 16:40 | PC.NURSE ---
Placed on bedside panel monitor
--- NOTE | 2022-08-12 16:49 | XRR_ITS ---
PROCEDURE INFORMATION: Exam: XR Chest Exam date and time: 08/12/2022 4:55 PM Age: 82 years old Clinical indication: Pain; Chest pressure; Additional info: Cp TECHNIQUE: Imaging protocol: Radiologic exam of the chest. Views: 1 view. COMPARISON: CR XR chest 1V portable [id number] 05/12/2020 10:56 AM FINDINGS: Lungs: Unremarkable. No consolidation. Pleural spaces: Unremarkable. No pleural effusion. No pneumothorax. Heart/Mediastinum: Unremarkable. No cardiomegaly. Bones/joints: Unremarkable. XR/XR chest 1V portable [id number] IMPRESSION: No acute findings.
[2022-08-12] MEDS: aspirin 81 mg Chew Tablet 324 MG PO (17:01)
--- NOTE | 2022-08-12 17:02 | ED_ITS ---
HPI - Chest Pain General: Chief Complaint: Chest Pain Stated Complaint: chest pain Time Seen by Provider: 08/12/22 16:51 Source: patient and family Mode of arrival: ambulatory Limitations: no limitations History of Present Illness: This patient made his way to the emergency department company by his spouse. He had a couple of episodes of chest pain today that lasted approximately 30 minutes or so. He states they were substernal and seem to be associated with what he perceived as possible atrial fibrillation. He states symptoms were relieved with nitroglycerin. He states he is pain-free at this time. He states he had a couple of episodes last week and the week before but he did not take nitroglycerin at that time and he thinks again thinks that they were related to episodes of a change in his heart rate. He has been seen by cardiology in the past and told he had congestive heart failure as well as atrial fibrillation. He takes warfarin as prescribed. He denies any fevers or chills, back pain ripping tearing pain or other concerning findings. He does not use tobacco and is a not never been a smoker. Onset: during rest Relieving factors: nitroglycerin Associated symptoms: Reports dyspnea and palpitations; Deny fever(s), nausea, syncope or vomiting Review of Systems Const: Denies: fever(s) or chills ENMT: Denies: throat pain or odynophagia Card: Reports: palpitations and irregular heart rhythm; Denies: syncope or pre-syncope Resp: Reports: dyspnea; Denies: productive cough, non-productive cough or wheezing GI: Denies: nausea, vomiting or diarrhea : Denies: flank pain, difficulty urinating, dysuria or urinary frequency Musc: Denies: neck pain, back pain, extremity pain or extremity swelling Skin/Breast: Denies: rash Neuro: Denies: headache(s), numbness in extremities or weakness in extremities Psych: Denies: anxiety or depression Nikos/Lymph: Reports: easy bruising PFSH ED PFSH: Medical History Abnormal myocardial perfusion study Atrial fibrillation -Status post cardioversion June 2018 BPH (benign prostatic hyperplasia) -on Flomax Chest pain Congestive heart failure -appears clinically compensated -has known hx of chronic HFrEF -last Echo (06/2018): EF=35%, global LV hypokinesis, trace to mild NC, trace to mild TR, mild pulmonary HTN -continue Lasix Coronary artery disease Diabetes mellitus type 2, noninsulin dependent -can resume metformin on d/c Diverticulosis Essential hypertension History of colon polyps Hypothyroid -continue levothyroxine Surgical History H/O colonoscopy (04/04/20) H/O esophagogastroduodenoscopy 2019 History of cataract surgery History of lumbar laminectomy Hx of cholecystectomy Family History Family/Other CAD (coronary artery disease) Father Cancer Mother Cancer CAD (coronary artery disease) Stroke Brother CAD (coronary artery disease) Diabetes Denies family history of Clotting disorder Dementia Chronic kidney disease (CKD) Suicide Anesthesia complication Bleeding disorder Lung disease Social History Smoking and tobacco status: never smoked Alcohol intake: never Household members: spouse Marital status: Current occupational status: retired Physical Exam Narrative: EXAM NARRATIVE: Patient appears to be comfortable. He responds in an appropriate goal-directed fashion. Const: COMMON NORMALS: no acute distress and average body habitus GENERAL APPEARANCE: cooperative and comfortable ORIENTATION/CONSCIOUSNESS: Yes awake, Yes oriented to person and Yes oriented to place HENMT: COMMON NORMALS: normocephalic, Normal nasal mucous membranes and turbinates present, moist oral mucous membranes and oropharynx normal HEAD & SCALP: normocephalic NOSE: Normal nasal mucous membranes and turbinates present Eye: COMMON NORMALS: Equal, round and reactive pupils present, conjunctivae normal and no scleral icterus CONJUNCTIVA: Yes conjunctivae normal PUPIL: Yes Equal, round and reactive pupils present Neck/C-Spine: COMMON NORMALS: full ROM, no JVD and No carotid bruits Chest: COMMONS NORMALS: normal inspection of the chest and normal palpation of entire chest wall Resp: COMMON NORMALS: normal respiratory effort, No use of accessory muscles and clear to auscultation bilaterally EFFORT & INSPECTION: Yes able to speak in complete sentences AUSCULTATION: clear to auscultation bilaterally Cardio: COMMON NORMALS: no JVD, regular rate, regular rhythm, No murmurs present (Cardio) and Peripheral pulses 2+ throughout RATE: regular rate RHYTHM: regular rhythm PERIPHERAL PULSES: Peripheral pulses 2+ throughout GI: COMMON NORMALS: Normal to inspection, nondistended, normoactive bowel sounds present, Soft to palpation and non-tender PALPATION: Yes Soft to palpation : COMMON NORMALS: Yes no CVA tenderness BLADDER/KIDNEY EXAM: Yes no CVA tenderness Back/Pelvis: COMMON NORMALS: no CVA tenderness, thoracic and lumbar spine normal to inspection and no thoracic nor lumbar tenderness Extremity: COMMON NORMALS: normal to inspection, full ROM, no calf tenderness and no pedal edema Neuro: COMMON NORMALS: moves all extremities, no focal motor deficits and no sensory deficits noted SENSORIUM/ORIENTATION: Yes oriented to person and Yes oriented to place Psych: COMMON NORMALS: mental status grossly normal Skin: COMMON NORMALS: no rashes or lesions noted, no wounds and turgor normal GENERAL SKIN EXAM: no rashes or lesions noted and turgor normal Course Reevaluation(s): Reevaluation #1: The patient remained stable while in the emergency department any episodes of chest pain, arrhythmia or other concerning findings. Clinical examination remained unchanged and he was asymptomatic. Findings from this evening's evaluation were shared with both patient and spouse. We discussed implications and limitations and the need for close follow-up with return precautions. Discussion was acknowledged by both patient and spouse. Time: 20:00 Vital Signs: Vital signs: Vital Signs Temperature 97.8 F 08/12/22 16:15 Pulse Rate 61 08/12/22 20:00 Respiratory Rate 16 08/12/22 20:00 Blood Pressure 126/68 08/12/22 20:00 Pulse Oximetry 97 08/12/22 20:00 Oxygen Delivery Me thod 08/12/22 20:00 MDM - Chest Pain Medical Decision Making This gentleman with a known history of coronary disease, congestive heart failure, intermittent atrial fibrillation presented to the emergency department with concerns about 2-3 episodes over the past 2 to 3 weeks where he is felt like he had chest heaviness. He is unclear whether he was having rapid heart rate or palpitations but he feels that that may have been the case during these episodes. He arrived to the emergency department with that history and his evaluation revealed a clinically stable individual with no focal findings on examination to suggest acute congestive heart failure, arrhythmias etc. Work-up was engaged to ensure no evidence of ACS, sustained arrhythmia etc. Work-up revealed reassuring serial troponins, EKGs without any acute changes, chest x-ray and other laboratories which were unremarkable. Current findings do not suggest a ongoing emergency medical condition such as described. He may be having intermittent episodes of short duration of atrial fibrillation which may be contributing to his symptoms but that is not clear as we had no delineated episodes of A-fib during his emergency department observation. We discussed his findings and their limitations and implications and they are reassuring nature and it does not suggest acute ACS at this time. We do recommend continue his usual medication regimen, following up with his primary care doctor to review his symptoms and any ongoing symptoms as well as return precautions. Medical Records I reviewed the patient's medical records. Lab Data I reviewed the patient's lab results. 08/12/22 17:08 08/12/22 17:08 Radiology Impressions Chest X-Ray 08/12/22 16:49 IMPRESSION: No acute findings. Laboratory Results WBC 6.6 10^3/uL (4.0-10.0) 08/12/22 17:08 RBC 5.13 10^6/uL (4.1-5.3) 08/12/22 17:08 Hgb 14.7 g/dL (11.7-16.6) 08/12/22 17:08 Hct 46.4 % (42.0-52.0) 08/12/22 17:08 MCV 90.4 fl (80-94) 08/12/22 17:08 MCH 28.7 pg (28.0-34.0) 08/12/22 17:08 MCHC 31.7 g/dL (30.0-36.0) 08/12/22 17:08 RDW 14.4 % (12.1-15.1) 08/12/22 17:08 Plt Count 235 10^3/cmm (130-400) 08/12/22 17:08 MPV 9.7 fL (7.4-10.4) 08/12/22 17:08 Neut % (Auto) 70.4 % 08/12/22 17:08 Lymph % (Auto) 16.0 % 08/12/22 17:08 [place] % (Auto) 9.9 % 08/12/22 17:08 Eos % (Auto) 2.6 % 08/12/22 17:08 Baso % (Auto) 0.6 % 08/12/22 17:08 Neut # (Auto) 4.63 10^3/uL (1.8-7.7) 08/12/22 17:08 Lymph # (Auto) 1.1 10^3/uL (0.8-4.8) 08/12/22 17:08 [place] # (Auto) 0.7 10^3/uL (0.2-0.9) 08/12/22 17:08 Eos # (Auto) 0.2 10^3/uL (0.0-0.8) 08/12/22 17:08 Baso # (Auto) 0.0 10^3/uL (0.0-0.1) 08/12/22 17:08 Nucleated RBC % (auto) 0 % 08/12/22 17:08 Nucleated RBCs # 0.0 /100WBC 08/12/22 17:08 PT 24.10 SECONDS (12.1-14.9) H 08/12/22 16:50 INR 2.08 (0.8-1.2) H 08/12/22 16:50 Sodium 132 mmol/L (136-145) L 08/12/22 17:08 Potassium 4.1 mmol/L (3.5-5.1) 08/12/22 17:08 Chloride 94 mmol/L (98-107) L 08/12/22 17:08 Carbon Dioxide 27 mmol/L (22-29) 08/12/22 17:08 Anion Gap 15.1 (5-19) 08/12/22 17:08 BUN 22 mg/dL (8-23) 08/12/22 17:08 Creatinine 1.5 mg/dL (0.7-1.2) H 08/12/22 17:08 GFR Calculation Not Reportable 08/12/22 17:08 Glucose 163 mg/dL (65-115) H 08/12/22 17:08 Calculated Osmolality 281 mOsm/kg (285-295) L 08/12/22 17:08 Calcium 8.1 mg/dL (8.5-10.5) L 08/12/22 17:08 Total Bilirubin 0.4 mg/dL (0.15-1.2) 08/12/22 17:08 AST 21 U/L (0-40) 08/12/22 17:08 ALT 13 U/L (0-41) 08/12/22 17:08 Alkaline Phosphatase 93 U/L (40-130) 08/12/22 17:08 Troponin T Baseline 12 ng/L (0-15) 08/12/22 17:08 Troponin T 120 Minute 12.08 ng/L (0-15) 08/12/22 19:31 Delta Troponin T 0.08 ABS# (0-10) 08/12/22 19:31 NT-Pro-B Natriuret Pep 280 pg/mL (0-450) 08/12/22 17:08 Total Protein 6.6 g/dL (6.6-8.7) 08/12/22 17:08 Albumin 3.9 g/dL (3.5-5.2) 08/12/22 17:08 Globulin 2.7 g/dL (1.3-4.6) 08/12/22 17:08 TSH 2.65 uIU/mL (0.27-4.20) 08/12/22 17:08 EKG Data EKG 2: I personally reviewed and interpreted this EKG as follows: Interpretation: Repeat EKG this visit revealed ventricular rate of 61 bpm. Normal NC interval, QRS duration, corrected QT interval. Normal axis. No concerning ST-T wave segment changes at this time. No change from earlier tracing this today EKG 1: I personally reviewed and interpreted this EKG as follows: Interpretation: Initial resting EKG was reviewed contemporaneously. Resting ventricular rate of 70 bpm with normal intervals, normal axis. No acute ST-T wave changes noted. Discharge Plan Discharge Patient Disposition: Home Clinical Impression: Chest pain, History of atrial fibrillation Condition: Stable Prescriptions: No Action nitroglycerin [Nitrostat] 0.4 mg tablet, sublingual 0.4 mg SUBLINGUAL Q5M PRN (Reason: Chest Pain) tamsulosin [Flomax] 0.4 mg capsule 0.8 mg PO BEDTIME@18 magnesium oxide 400 mg magnesium capsule 250 mg PO DAILY@06 citalopram 10 mg tablet 10 mg PO DAILY montelukast 10 mg tablet 10 mg PO DAILY albuterol sulfate 90 mcg/actuation HFA aerosol inhaler 1 puff inhalation Q4H PRN (Reason: shortness of breath or wheezing) lisinopril 20 mg tablet 20 mg PO DAILY Qty: 90 3RF Farxiga 5 mg tablet 5 mg PO QAM Qty: 30 11RF carbidopa-levodopa 25-100 mg tablet 1 tab PO TID furosemide 40 mg tablet 40 mg PO DAILY@06 warfarin 5 mg tablet 5 mg PO DIRECTED Qty: 90 3RF Protocol: Dose Management Condition: Wednesday Dose/Route: 3 mg Instruction: 1 x 3 mg tablet Condition: Wednesday Dose/Route: 2 mg Instruction: 1 x 2 mg tablet Condition: Wednesday Dose/Route: 3 mg Instruction: 1 x 3 mg tablet Condition: Wednesday Dose/Route: 2 mg Instruction: 1 x 2 mg tablet Condition: Dose/Route: 3 mg Instruction: 1 x 3 mg tablet Condition: Wednesday Dose/Route: 3 mg Instruction: 1 x 3 mg tablet Condition: Wednesday Dose/Route: 3 mg Instruction: 1 x 3 mg tablet Protocol Text: Adjustment Start Date: Wednesday08/05/22 INR Value: 2.8 INR Date: 08/03/22 Recheck Date: 08/12/22 Rx Instructions: Take 1 tablet by mouth daily as directed per INR results. potassium chloride 10 mEq tablet,ER particles/crystals 10 meq PO DAILY Qty: 90 3RF amiodarone 200 mg tablet See Rx Instructions .ROUTE .COMPLEX Qty: 90 3RF Dose Instruction: TAKE 1 TABLET EVERY MORNING Rx Instructions: TAKE 1 TABLET EVERY MORNING metoprolol succinate 100 mg tablet extended release 24 hr See Rx Instructions .ROUTE .COMPLEX Qty: 90 3RF Dose Instruction: TAKE 1 TABLET EVERY DAY Rx Instructions: TAKE 1 TABLET EVERY DAY warfarin 2 mg tablet See Rx Instructions .ROUTE .COMPLEX Qty: 90 3RF Hold Instructions: Resume on 11/17/19. Protocol: Dose Management Condition: Wednesday Dose/Route: 3 mg Instruction: 1 x 3 mg tablet Condition: Wednesday Dose/Route: 2 mg Instruction: 1 x 2 mg tablet Condition: Wednesday Dose/Route: 3 mg Instruction: 1 x 3 mg tablet Condition: Wednesday Dose/Route: 2 mg Instruction: 1 x 2 mg tablet Condition: Dose/Route: 3 mg Instruction: 1 x 3 mg tablet Condition: Wednesday Dose/Route: 3 mg Instruction: 1 x 3 mg tablet Condition: Wednesday Dose/Route: 3 mg Instruction: 1 x 3 mg tablet Protocol Text: Adjustment Start Date: Wednesday08/05/22 INR Value: 2.8 INR Date: 08/03/22 Recheck Date: 08/12/22 Dose Instruction: TAKE DIRECTED PER PROTOCOL Rx Instructions: TAKE DIRECTED PER PROTOCOL warfarin 3 mg tablet See Rx Instructions .ROUTE .COMPLEX Qty: 90 3RF Hold Instructions: Resume on 11/17/19. Protocol: Dose Management Condition: Wednesday Dose/Route: 3 mg Instruction: 1 x 3 mg tablet Condition: Wednesday Dose/Route: 2 mg Instruction: 1 x 2 mg tablet Condition: Wednesday Dose/Route: 3 mg Instruction: 1 x 3 mg tablet Condition: Wednesday Dose/Route: 2 mg Instruction: 1 x 2 mg tablet Condition: Dose/Route: 3 mg Instruction: 1 x 3 mg tablet Condition: Wednesday Dose/Route: 3 mg Instruction: 1 x 3 mg tablet Condition: Wednesday Dose/Route: 3 mg Instruction: 1 x 3 mg tablet Protocol Text: Adjustment Start Date: Wednesday08/05/22 INR Value: 2.8 INR Date: 08/03/22 Recheck Date: 08/12/22 Dose Instruction: TAKE 1 TABLET DIRECTED (SEE PROTOCOL) Rx Instructions: TAKE 1 TABLET DIRECTED (SEE PROTOCOL) metformin 850 mg tablet 850 mg PO BID Hold Instructions: Resume on 11/19/19. levothyroxine 50 mcg Tablet 50 mcg PO DAILY atorvastatin 40 mg tablet 40 mg PO DAILY Discharge Orders: Discharge ED (Routine); Ordered 08/12/22 Ordered By: Gil Hunt Referrals: Bassam Hou MD [Primary Care Provider] - 2 weeks (Provocative testing if needed) Discharge Diet: Usual diet Discharge Activity: Resume usual activity Patient Instructions: Opioid Safety, Pain Management Activity Restrictions/Additional Instructions: As we discussed we did not have any findings of concern while you are in the emergency department this evening. You should continue all your usual prescribed medication. Should you develop sustained chest pain lasting for more than an hour, not relieved by nitroglycerin or other symptoms such as lightheadedness dizziness etc. return to this or the nearest emergency department. Follow-up with your doctor in the next 2 weeks to review your symptoms and determine if additional testing is necessary. Coding Level of Care Code ED Seam Taper Machine for Stan Haider
[2022-08-12 17:36] LABS: Basophils % 0.6 %; Eosinophils # 0.2 10^3/uL (0.0-0.8); Eosinophils % 2.6 %; Hematocrit 46.4 % (42.0-52.0); Hemoglobin 14.7 g/dL (11.7-16.6); Lymphocytes # 1.1 10^3/uL (0.8-4.8); Mean Corpuscular HGB Conc 31.7 g/dL (30.0-36.0); Mean Corpuscular Hemoglobin 28.7 pg (28.0-34.0); Mean Corpuscular Volume 90.4 fl (80-94); Mean Platelet Volume 9.7 fL (7.4-10.4); Monocytes # 0.7 10^3/uL (0.2-0.9); Monocytes % 9.9 %; Neutrophils # 4.63 10^3/uL (1.8-7.7); Neutrophils % 70.4 %; Nucleated Red Blood Cells % 0 %; Platelet Count 235 10^3/cmm (130-400); Red Blood Count 5.13 10^6/uL (4.1-5.3); Red Cell Distribution Width 14.4 % (12.1-15.1); White Blood Count 6.6 10^3/uL (4.0-10.0)
[2022-08-12 17:49] LABS: INR 2.08 (0.8-1.2)
[2022-08-12 18:01] LABS: Troponin(5th) Baseline 12 ng/L (0-15)
[2022-08-12 18:11] LABS: Alanine Aminotransferase 13 U/L (0-41); Albumin Level 3.9 g/dL (3.5-5.2); Alkaline Phosphatase 93 U/L (40-130); Anion Gap 15.1 (5-19); Aspartate Amino Transferase 21 U/L (0-40); Blood Urea Nitrogen 22 mg/dL (8-23); Calcium 8.1 mg/dL (8.5-10.5); Carbon Dioxide 27 mmol/L (22-29); Chloride 94 mmol/L (98-107); Globulin 2.7 g/dL (1.3-4.6); Glucose 163 mg/dL (65-115); NT Pro B Type Natriuretic Pept 280 pg/mL (0-450); Osmolality Calculated 281 mOsm/kg (285-295); Potassium 4.1 mmol/L (3.5-5.1); Sodium 132 mmol/L (136-145); Thyroid Stimulating Hormone 2.65 uIU/mL (0.27-4.20); Total Bilirubin 0.4 mg/dL (0.15-1.2); Total Protein 6.6 g/dL (6.6-8.7)
--- NOTE | 2022-08-12 18:41 | ECG_ITS ---
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 Measurements Intervals [place] Rate: 61 P: 93 NC: 194 QRS: 31 QRSD: 102 T: 80 QT: 352 QTc: 356 Interpretive Statements SINUS RHYTHM NONSPECIFIC T-WAVE ABNORMALITY Compared to ECG 08/12/2022 16:22:25 No significant changes Electronically Signed On 08-13-2022 18:48:14 CDT by Dario Quijano M.D. [email or web address]
[2022-08-12 18:51] VITALS: BP 114/70; PULSE 60; RESP 16
[2022-08-12 19:58] LABS: Troponin 5 2HR 12.08 ng/L (0-15)
[2022-08-12 20:00] VITALS: BP 126/68; PULSE 61; RESP 16; O2SAT 97
[2022-08-12 20:04] LABS: Troponin 5 2HR Delta 0.08 ABS# (0-10)
[2022-08-12 20:31] VITALS: BP 136/76; RESP 18
== END 2022-08-12 20:35 | disposition home or self-care (01) ==
PROVIDERS: Emergency Provider Emergency Medicine; PCP Family Medicine
DX: R07.9 Chest pain, unspecified (principal); I48.91 Unspecified atrial fibrillation; Z79.01 Long term (current) use of anticoagulants; Z79.84 Long term (current) use of oral hypoglycemic drugs; I11.0 Hypertensive heart disease with heart failure; I50.9 Heart failure, unspecified; I25.10 Atherosclerotic heart disease of native coronary artery without angina pectoris; E11.9 Type 2 diabetes mellitus without complications
CPT/HCPCS: 71045; 80053; 83880; 84443; 84484; 85025; 85610; 93005; 99285

== ENCOUNTER → 2023-01-20 16:42 | Outpatient (BNVA) | payer MEDICARE, SELFPAY | PROVIDERS: PCP Family Medicine; Visit Provider Internal Medicine Cardiovascular Disease | DX: R06.02 Shortness of breath (principal); I48.0 Paroxysmal atrial fibrillation; E78.2 Mixed hyperlipidemia; I11.0 Hypertensive heart disease with heart failure; I50.32 Chronic diastolic (congestive) heart failure; E11.9 Type 2 diabetes mellitus without complications | CPT/HCPCS: 36415; 80048; 83880; 99214 ==

== ENCOUNTER 2023-01-23 05:36 | Emergency (ER) | payer MEDICARE, SELFPAY ==
[2023-01-23 05:47] VITALS: BP 137/72; PULSE 71; RESP 20; TEMP 36.5; O2SAT 94; BMI 30.8
--- NOTE | 2023-01-23 05:53 | ECG_ITS ---
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 Measurements Intervals [place] Rate: 69 P: 62 DC: 198 QRS: 24 QRSD: 101 T: 76 QT: 338 QTc: 364 Interpretive Statements SINUS RHYTHM NONSPECIFIC T-WAVE ABNORMALITY Compared to ECG 08/12/2022 18:41:11 No significant changes Electronically Signed On 01-23-2023 13:58:40 CDT by Osito Win M.D. [email or web address]
--- NOTE | 2023-01-23 05:53 | XRR_ITS ---
PROCEDURE INFORMATION: Exam: XR Chest Exam date and time: 01/23/2023 6:07 AM Age: 82 years old Clinical indication: Chest pressure; Patient HX: C/O chest pain TECHNIQUE: Imaging protocol: Radiologic exam of the chest. Views: 1 view. COMPARISON: CR XR chest 1V portable [id number] 08/12/2022 4:55 PM FINDINGS: Lungs: Unremarkable. No consolidation. Pleural spaces: Unremarkable. No pleural effusion. No pneumothorax. Heart/Mediastinum: Unremarkable. No cardiomegaly. Bones/joints: Unremarkable. XR/XR chest 1V portable [id number] IMPRESSION: No acute findings.
--- NOTE | 2023-01-23 05:56 | W.ED.CHESTPA ---
HPI - Chest Pain General: Chief Complaint: Chest Pain Stated Complaint: Chest Pains Time Seen by Provider: 01/23/23 05:43 Source: patient Mode of arrival: ambulatory History of Present Illness: 62-year-old male presents emergency room with complaints of chest pain that began this morning when he first got out of bed. He has had episodes of chest pain in the past he has a known history of coronary artery disease approximately 2 years ago he had an angiogram that showed diffuse nonspecific disease no stenotic areas he did not have any intervention he was treated medically. He was seen in July of this year with an episode of chest pain as well. He has a known history of atrial fibrillation. His rate has been well controlled recently. He is also on Coumadin. MD complaint: chest pain Pertinent past history: coronary artery disease Onset (ago): hour(s) Timing of current episode: episodic Prior episodes: Yes Onset: during rest Pain location: substernal Pain radiation: none Severity: moderate Quality: tightness and aching Relieving factors: nitroglycerin Exacerbating factors: nothing Associated symptoms: Reports diaphoresis, dyspnea and nausea; Deny abdominal pain, fever(s), leg edema, palpitations, sense of impending doom, syncope or vomiting Treatment prior to arrival: nitroglycerin Review of Systems Const: Reports: diaphoresis; Denies: fever(s) or chills ENMT: Denies: throat pain, ear or mastoid pain, nasal discharge or nasal congestion Card: Reports: chest pain; Denies: palpitations or syncope Resp: Reports: dyspnea GI: Reports: nausea; Denies: abdominal pain or vomiting : Denies: flank pain, dysuria, urinary frequency or urinary urgency Skin/Breast: Denies: rash or pruritus PFS ED PFSH: Medical History Abnormal myocardial perfusion study Atrial fibrillation -Status post cardioversion June 2018 BPH (benign prostatic hyperplasia) -on Flomax Chest pain Congestive heart failure The most recent echocardiogram in 2019 revealed ejection fraction of 70% Coronary artery disease Diabetes mellitus type 2, noninsulin dependent Diverticulosis Essential hypertension History of colon polyps Hypothyroid -continue levothyroxine Surgical History H/O colonoscopy (04/04/20) H/O esophagogastroduodenoscopy 2019 History of cataract surgery History of lumbar laminectomy Hx of cholecystectomy Family History Family/Other CAD (coronary artery disease) Father Cancer Mother Cancer CAD (coronary artery disease) Stroke Brother CAD (coronary artery disease) Diabetes Denies family history of Clotting disorder Dementia Chronic kidney disease (CKD) Suicide Anesthesia complication Bleeding disorder Lung disease Social History Smoking and tobacco status: never smoked Alcohol intake: never Substance/Drug Use: never Household members: spouse Marital status: Current occupational status: retired Physical Exam Const: GENERAL APPEARANCE: cooperative and comfortable ORIENTATION/CONSCIOUSNESS: Yes awake, Yes oriented to person, Yes oriented to place and Yes oriented to time HENMT: COMMON NORMALS: normocephalic, atraumatic and hearing grossly normal bilaterally HEAD & SCALP: normocephalic and atraumatic Resp: COMMON NORMALS: normal respiratory effort, No retractions, No use of accessory muscles and clear to auscultation bilaterally AUSCULTATION: clear to auscultation bilaterally Cardio: COMMON NORMALS: regular rate, regular rhythm and No murmurs present (Cardio) RATE: regular rate RHYTHM: regular rhythm GI: COMMON NORMALS: Soft to palpation and No hepatosplenomegaly present AUSCULTATION: Yes normoactive bowel sounds PALPATION: Yes Soft to palpation, No Tenderness to palpation present (GI), No Guarding due to palpation present (GI) and Yes No hepatosplenomegaly present Extremity: COMMON NORMALS: normal to inspection, capillary refill normal, no clubbing, cyanosis or edema, no calf tenderness and no pedal edema Neuro: SENSORIUM/ORIENTATION: Yes oriented to person, Yes oriented to place and Yes oriented to time Skin: COMMON NORMALS: no rashes or lesions noted GENERAL SKIN EXAM: no rashes or lesions noted Course Vital Signs: Vital signs: Vital Signs Temperature 97.7 F 01/23/23 05:47 Pulse Rate 69 01/23/23 09:00 Respiratory Rate 17 01/23/23 09:00 Blood Pressure 118/61 01/23/23 09:00 Pulse Oximetry 92 01/23/23 09:00 Oxygen Delivery Me thod Room Air 01/23/23 09:00 MDM - Chest Pain Medical Decision Making Patient had angiogram in November 2019 that was negative. Cardiac enzymes and EKG today are both negative. We will start him on isosorbide mononitrate 30 mg once daily continue his other medication set up for an outpatient Lexiscan sestamibi stress test has any worsening or change symptoms return to the emergency room. Reviewed chart discussed with on-call cardiology. Medical Records I reviewed the patient's medical records. Lab Data I reviewed the patient's lab results. 01/23/23 06:00 01/23/23 06:00 Radiology Impressions Chest X-Ray 01/23/23 05:53 IMPRESSION: No acute findings. Laboratory Results WBC 9.08 10^3/uL (3.29-11.43) 01/23/23 06:00 RBC 5.14 10^6/uL (3.85-5.65) 01/23/23 06:00 Hgb 14.80 g/dL (11.27-16.99) 01/23/23 06:00 Hct 46.3 % (37-53) 01/23/23 06:00 MCV 90.1 fl (82-101) 01/23/23 06:00 MCH 28.8 pg (27-33) 01/23/23 06:00 MCHC 32.0 g/dL (30-55) 01/23/23 06:00 RDW 14.9 % (12.1-15.1) 01/23/23 06:00 Plt Count 222 10^3/cmm (157-399) 01/23/23 06:00 MPV 9.5 fL (7.4-10.4) 01/23/23 06:00 Neut % (Auto) 76.5 % 01/23/23 06:00 Lymph % (Auto) 12.1 % 01/23/23 06:00 [place] % (Auto) 7.4 % 01/23/23 06:00 Eos % (Auto) 3.0 % 01/23/23 06:00 Baso % (Auto) 0.6 % 01/23/23 06:00 Neut # (Auto) 6.95 10^3/uL (1.8-7.7) 01/23/23 06:00 Lymph # (Auto) 1.1 10^3/uL (0.8-4.8) 09/09/23 06:00 [place] # (Auto) 0.7 10^3/uL (0.2-0.9) 01/23/23 06:00 Eos # (Auto) 0.3 10^3/uL (0.0-0.8) 01/23/23 06:00 Baso # (Auto) 0.1 10^3/uL (0.0-0.1) 01/23/23 06:00 Nucleated RBC % (auto) 0 % 01/23/23 06:00 Nucleated RBCs # 0.0 /100WBC 01/23/23 06:00 PT 22.60 SECONDS (12.1-14.9) H 01/23/23 06:00 INR 1.91 (0.8-1.2) H 01/23/23 06:00 APTT 31.5 SECONDS (23.9-36.7) 01/23/23 06:00 Sodium 139 mmol/L (136-145) 01/23/23 06:00 Potassium 4.6 mmol/L (3.5-5.1) 01/23/23 06:00 Chloride 101 mmol/L (98-107) 01/23/23 06:00 Carbon Dioxide 28 mmol/L (22-29) 01/23/23 06:00 Anion Gap 14.6 (5-19) 01/23/23 06:00 BUN 17 mg/dL (8-23) 01/23/23 06:00 Creatinine 1.1 mg/dL (0.7-1.2) 01/23/23 06:00 GFR Calculation Not Reportable 01/23/23 06:00 Glucose 196 mg/dL (65-115) H 01/23/23 06:00 Calculated Osmolality 295 mOsm/kg (285-295) 01/23/23 06:00 Calcium 8.7 mg/dL (8.5-10.5) 01/23/23 06:00 Total Bilirubin 0.8 mg/dL (0.15-1.2) 01/23/23 06:00 AST 48 U/L (0-40) H 01/23/23 06:00 ALT 34 U/L (0-41) 01/23/23 06:00 Alkaline Phosphatase 104 U/L (40-130) 01/23/23 06:00 Troponin T Baseline 13 ng/L (0-15) 01/23/23 06:00 Troponin T 120 Minute 12.20 ng/L (0-15) 01/23/23 07:56 Delta Troponin T -0.80 ABS# (0-10) L 01/23/23 07:56 Total Protein 6.3 g/dL (6.6-8.7) L 01/23/23 06:00 Albumin 4.1 g/dL (3.5-5.2) 01/23/23 06:00 Globulin 2.2 g/dL (1.3-4.6) 01/23/23 06:00 Discharge Plan Discharge Patient Disposition: Home Clinical Impression: Atypical chest pain Condition: Stable Prescriptions: New isosorbide mononitrate 30 mg tablet extended release 24 hr 30 mg PO DAILY Qty: 30 0RF No Action nitroglycerin [Nitrostat] 0.4 mg tablet, sublingual 0.4 mg SUBLINGUAL Q5M PRN (Reason: Chest Pain) tamsulosin [Flomax] 0.4 mg capsule 0.8 mg PO BEDTIME@18 magnesium oxide 400 mg magnesium capsule 250 mg PO DAILY@06 montelukast 10 mg tablet 10 mg PO DAILY albuterol sulfate 90 mcg/actuation HFA aerosol inhaler 1 puff inhalation Q4H PRN (Reason: shortness of breath or wheezing) lisinopril 20 mg tablet 20 mg PO DAILY Qty: 90 3RF Farxiga 5 mg tablet 5 mg PO QAM Qty: 30 11RF carbidopa-levodopa 25-100 mg tablet 1 tab PO TID furosemide 40 mg tablet 40 mg PO DAILY@06 potassium chloride 10 mEq tablet,ER particles/crystals 10 meq PO DAILY Qty: 90 3RF atorvastatin 40 mg tablet 40 mg PO DAILY citalopram 20 mg tablet 20 mg PO DAILY metformin 750 mg tablet extended release 24 hr 750 mg PO BID amiodarone 200 mg tablet 200 mg PO DAILY metoprolol succinate 100 mg tablet extended release 24 hr 100 mg PO DAILY warfarin 3 mg tablet 3 mg PO DAILY Protocol: Dose Management Condition: Wednesday Dose/Route: 3 mg Instruction: 1 x 3 mg tablet Condition: Wednesday Dose/Route: 3 mg Instruction: 1 x 3 mg tablet Condition: Wednesday Dose/Route: 3 mg Instruction: 1 x 3 mg tablet Condition: Wednesday Dose/Route: 3 mg Instruction: 1 x 3 mg tablet Condition: Dose/Route: 3 mg Instruction: 1 x 3 mg tablet Condition: Wednesday Dose/Route: 3 mg Instruction: 1 x 3 mg tablet Condition: Wednesday Dose/Route: 3 mg Instruction: 1 x 3 mg tablet Protocol Text: Adjustment Start Date: Wednesday01/19/23 INR Value: 2.3 INR Date: 01/18/23 Recheck Date: 01/26/23 levothyroxine 50 mcg tablet 50 mcg PO DAILY Discharge Orders: Discharge ED (Routine); Ordered 01/23/23 Ordered By: Jose Garrison Referrals: Bassam Hou MD [Primary Care Provider] - Discharge Diet: Usual diet Discharge Activity: Resume usual activity Patient Instructions: Opioid Safety, Pain Management Activity Restrictions/Additional Instructions: Start isosorbide mononitrate daily continue all of your other medications. meat sales and storage manager will make arrangements for a follow-up outpatient Lexiscan sestamibi stress test. Coding Level of Care Code ED Ore Dryer for Stan Haider
[2023-01-23 06:04] VITALS: BP 137/72; PULSE 70
[2023-01-23] MEDS: nitroglycerin 1 gm/inch oint Pkt 1 INCH TOPICAL (06:04)
[2023-01-23] MEDS: aspirin 81 mg Chew Tablet 324 MG PO (06:06)
[2023-01-23 06:11] LABS: Basophils # 0.1 10^3/uL (0.0-0.1); Basophils % 0.6 %; Eosinophils # 0.3 10^3/uL (0.0-0.8); Hematocrit 46.3 % (37-53); Lymphocytes # 1.1 10^3/uL (0.8-4.8); Lymphocytes % 12.1 %; Mean Corpuscular Hemoglobin 28.8 pg (27-33); Mean Corpuscular Volume 90.1 fl (82-101); Mean Platelet Volume 9.5 fL (7.4-10.4); Monocytes # 0.7 10^3/uL (0.2-0.9); Monocytes % 7.4 %; Neutrophils # 6.95 10^3/uL (1.8-7.7); Neutrophils % 76.5 %; Nucleated Red Blood Cells % 0 %; Platelet Count 222 10^3/cmm (157-399); Red Blood Count 5.14 10^6/uL (3.85-5.65); Red Cell Distribution Width 14.9 % (12.1-15.1); White Blood Count 9.08 10^3/uL (3.29-11.43)
[2023-01-23 06:23] LABS: Troponin(5th) Baseline 13 ng/L (0-15)
[2023-01-23 06:25] LABS: Alanine Aminotransferase 34 U/L (0-41); Albumin Level 4.1 g/dL (3.5-5.2); Alkaline Phosphatase 104 U/L (40-130); Anion Gap 14.6 (5-19); Aspartate Amino Transferase 48 U/L (0-40); Blood Urea Nitrogen 17 mg/dL (8-23); Calcium 8.7 mg/dL (8.5-10.5); Carbon Dioxide 28 mmol/L (22-29); Chloride 101 mmol/L (98-107); Globulin 2.2 g/dL (1.3-4.6); Glucose 196 mg/dL (65-115); Osmolality Calculated 295 mOsm/kg (285-295); Potassium 4.6 mmol/L (3.5-5.1); Sodium 139 mmol/L (136-145); Total Bilirubin 0.8 mg/dL (0.15-1.2); Total Protein 6.3 g/dL (6.6-8.7)
[2023-01-23 06:38] LABS: INR 1.91 (0.8-1.2)
[2023-01-23 06:39] LABS: Partial Thromboplastin Time 31.5 SECONDS (23.9-36.7)
--- NOTE | 2023-01-23 07:42 | PC.NURSE ---
Report from Brenda. Pt assisted to restroom. Rates chest pain 3/10 at this time. Pt stable and in nad
--- NOTE | 2023-01-23 07:53 | ECG_ITS ---
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 Measurements Intervals [place] Rate: 67 P: 241 CO: 74 QRS: 23 QRSD: 106 T: 77 QT: 347 QTc: 368 Interpretive Statements Sinus RHYTHM NONSPECIFIC ST & T-WAVE ABNORMALITY ABNORMAL RHYTHM ECG Compared to ECG 01/23/2023 05:42:17 T-wave abnormality still present Electronically Signed On 01-23-2023 14:04:38 CDT by Osito Win M.D. [id number]
[2023-01-23 09:00] VITALS: BP 118/61; PULSE 69; RESP 17; O2SAT 92
--- NOTE | 2023-01-25 11:57 | DCPLANNER ---
display department manager had message to schedule an outpatient stress test for patient. display department manager faxed signed order to centralized scheduling, who will call patient with appointment information.
== END 2023-01-23 09:15 | disposition home or self-care (01) ==
PROVIDERS: Emergency Provider Family Medicine; PCP Family Medicine
DX: R07.89 Other chest pain (principal); Z79.84 Long term (current) use of oral hypoglycemic drugs; Z79.01 Long term (current) use of anticoagulants; I11.0 Hypertensive heart disease with heart failure; I50.9 Heart failure, unspecified; I25.10 Atherosclerotic heart disease of native coronary artery without angina pectoris; E11.9 Type 2 diabetes mellitus without complications
CPT/HCPCS: 36415; 71045; 80053; 84484; 85025; 85610; 85730; 93005; 99285

== ENCOUNTER 2023-02-14 13:28 | Emergency (ER) | payer MEDICARE, SELFPAY ==
[2023-02-14 13:40] VITALS: BP 134/66; PULSE 87; RESP 17; TEMP 36.4; O2SAT 97; BMI 30.5
--- NOTE | 2023-02-14 13:55 | ED_ITS ---
HPI - Extremity Problem General: Chief complaint: Extremity Problem,Nontraumatic Stated complaint: left arm pain/neck pain Time Seen by Provider: 02/14/23 13:55 History of Present Illness: 82-year-old male patient comes in today with some complaints of left shoulder and neck pain. Patient reports he was checked out 2 to 3 weeks ago for similar type pain and it was considered noncardiac at that time. Patient is set up for a stress test for further evaluation of his heart. Patient has no exacerbation of pain with rotation of the shoulder. Patient does have some muscle tension on the left side. Patient has full mobility of neck. Patient appears nontoxic. Spouse reports that he seems to be retaining more water in his ankles than normal. Associated symptoms: Deny fever(s) Review of Systems Const: Denies: fever(s) Musc: Reports: neck pain and joint pain (Left shoulder) PFS ED PFSH: Medical History Abnormal myocardial perfusion study Atrial fibrillation -Status post cardioversion June 2018 BPH (benign prostatic hyperplasia) -on Flomax Chest pain Congestive heart failure The most recent echocardiogram in 2019 revealed ejection fraction of 70% Coronary artery disease Diabetes mellitus type 2, noninsulin dependent Diverticulosis Essential hypertension History of colon polyps Hypothyroid -continue levothyroxine Surgical History H/O colonoscopy (04/04/20) H/O esophagogastroduodenoscopy 2019 History of cataract surgery History of lumbar laminectomy Hx of cholecystectomy Family History Family/Other CAD (coronary artery disease) Father Cancer Mother Cancer CAD (coronary artery disease) Stroke Brother CAD (coronary artery disease) Diabetes Denies family history of Clotting disorder Dementia Chronic kidney disease (CKD) Suicide Anesthesia complication Bleeding disorder Lung disease Social History Smoking and tobacco status: never smoked Alcohol intake: never Substance/Drug Use: never Household members: spouse Marital status: Current occupational status: retired Physical Exam Const: COMMON NORMALS: alert HENMT: COMMON NORMALS: normocephalic HEAD & SCALP: normocephalic MOUTH: Normal oral and palatal mucosa present Neck/C-Spine: CERVICAL SPINE: Yes Cervical spine tenderness C5, No Paracervical muscle tenderness and Yes Paracervical spasm (Left side muscle tightness) Chest: COMMONS NORMALS: normal palpation of entire chest wall Resp: COMMON NORMALS: normal respiratory effort and clear to auscultation bilaterally AUSCULTATION: clear to auscultation bilaterally Cardio: COMMON NORMALS: regular rate and regular rhythm RATE: regular rate RHYTHM: regular rhythm GI: COMMON NORMALS: Soft to palpation and non-tender PALPATION: Yes Soft to palpation Back/Pelvis: COMMON NORMALS: thoracic and lumbar spine normal to inspection Extremity: NARRATIVE EXTREMITY EXAM: Mild swelling to bilateral ankles Neuro: SENSORIUM/ORIENTATION: Yes alert Skin: COMMON NORMALS: turgor normal GENERAL SKIN EXAM: turgor normal Course Vital Signs: Vital signs: Vital Signs Temperature 97.5 F L 02/14/23 13:40 Pulse Rate 73 02/14/23 14:18 Respiratory Rate 16 02/14/23 14:18 Blood Pressure 129/66 02/14/23 14:18 Pulse Oximetry 93 02/14/23 14:18 Oxygen Delivery Me thod Room Air 02/14/23 13:40 MDM - Extremity (Nontraumatic) Medical Decision Making 82-year-old male patient comes in today for complaints of neck discomfort and left shoulder discomfort. Patient reports pain has been going on for 2 to 3 weeks. Patient was seen about 3 weeks ago and has been set up to follow-up with meat service team member and is set up for a stress test. Patient reports that has had some increased shoulder discomfort over the last 2 weeks and seems to radiate up into his neck. On exam there is some tightness in the left cervical paraspinous muscles. Some mild tenderness on palpation of the cervical disc #5. Differential diagnosis includes but not limited to cervical radiculopathy, coronary artery disease, angina, ACS. Laboratory values were unremarkable. Chest x-ray was normal. Cervical spine x-ray showed a degenerative disc disease. Suspect patient probably has some cervical radiculopathy. Recommend continued of care as prescribed with medications. Recommend acetaminophen for pain. Patient agreed with plan and recommendations for follow-up or return for worsening symptoms. Lab Data 02/14/23 14:11 02/14/23 14:11 Radiology Impressions Cervical Spine X-Ray 02/14/23 14:01 IMPRESSION: No acute fracture or subluxation of the cervical spine. Chest X-Ray 02/14/23 14:02 IMPRESSION: Hazy opacity in the right perihilar region. This may represent chronic lung markings; however, it appears slightly increased in conspicuity compared to 01/23/2023 and moderately increased in conspicuity compared to 08/12/2022 and prior radiographs in 2019. A focal pneumonia in this location is not excluded. Laboratory Results WBC 8.09 10^3/uL (3.29-11.43) 02/14/23 14:11 RBC 4.94 10^6/uL (3.85-5.65) 02/14/23 14:11 Hgb 14.20 g/dL (11.27-16.99) 02/14/23 14:11 Hct 44.4 % (37-53) 02/14/23 14:11 MCV 89.9 fl (82-101) 02/14/23 14:11 MCH 28.7 pg (27-33) 02/14/23 14:11 MCHC 32.0 g/dL (30-55) 02/14/23 14:11 RDW 14.5 % (12.1-15.1) 02/14/23 14:11 Plt Count 290 10^3/cmm (157-399) 02/14/23 14:11 MPV 9.1 fL (7.4-10.4) 02/14/23 14:11 Neut % (Auto) 76.9 % 02/14/23 14:11 Lymph % (Auto) 10.0 % 02/14/23 14:11 [place] % (Auto) 10.4 % 02/14/23 14:11 Eos % (Auto) 2.0 % 02/14/23 14:11 Baso % (Auto) 0.5 % 02/14/23 14:11 Neut # (Auto) 6.22 10^3/uL (1.8-7.7) 02/14/23 14:11 Lymph # (Auto) 0.8 10^3/uL (0.8-4.8) 02/14/23 14:11 [place] # (Auto) 0.8 10^3/uL (0.2-0.9) 02/14/23 14:11 Eos # (Auto) 0.2 10^3/uL (0.0-0.8) 02/14/23 14:11 Baso # (Auto) 0.0 10^3/uL (0.0-0.1) 02/14/23 14:11 Nucleated RBC % (auto) 0 % 02/14/23 14:11 Nucleated RBCs # 0.0 /100WBC 02/14/23 14:11 Sodium 137 mmol/L (136-145) 02/14/23 14:11 Potassium 4.3 mmol/L (3.5-5.1) 02/14/23 14:11 Chloride 92 mmol/L (98-107) L 02/14/23 14:11 Carbon Dioxide 31 mmol/L (22-29) H 02/14/23 14:11 Anion Gap 18.3 (5-19) 02/14/23 14:11 BUN 19 mg/dL (8-23) 02/14/23 14:11 Creatinine 1.3 mg/dL (0.7-1.2) H 02/14/23 14:11 GFR Calculation Not Reportable 02/14/23 14:11 Glucose 140 mg/dL (65-115) H 02/14/23 14:11 Calculated Osmolality 289 mOsm/kg (285-295) 02/14/23 14:11 Calcium 8.9 mg/dL (8.5-10.5) 02/14/23 14:11 Total Bilirubin 0.5 mg/dL (0.15-1.2) 02/14/23 14:11 AST 14 U/L (0-40) 02/14/23 14:11 ALT 7 U/L (0-41) 02/14/23 14:11 Alkaline Phosphatase 95 U/L (40-130) 02/14/23 14:11 Troponin T Baseline 16 ng/L (0-15) H 02/14/23 14:11 Total Protein 7.0 g/dL (6.6-8.7) 02/14/23 14:11 Albumin 3.8 g/dL (3.5-5.2) 02/14/23 14:11 Globulin 3.2 g/dL (1.3-4.6) 02/14/23 14:11 All radiology interpretation(s) finalized by discharge EKG Data EKG 1: EKG interpretation date: 02/14/23 EKG interpretation time: 15:00 Interpretation: EKG shows a sinus rhythm with very slightly irregular right at [address] elevation or ectopy is noted at this time. No prior exam was available for comparison at this time. Artifact was present on EKG. Computer generated interpretation: Sinus rhythm with sinus arrhythmia, nonspecific ST and T wave abnormality, b orderline EKG, unconfirmed report. Discharge Plan Discharge Patient Disposition: Home Clinical Impression: Cervical radicular pain Coronary artery disease Qualifiers: Coronary Disease-Associated Artery/Lesion type: unspecified vessel or lesion type [place] vs. transplanted heart: [place] heart Associated angina: unspecified whether angina present Qualified Code(s): I25.10 - Atherosclerotic heart disease of [place] coronary artery without angina pectoris Condition: Stable Prescriptions: No Action nitroglycerin [Nitrostat] 0.4 mg tablet, sublingual 0.4 mg SUBLINGUAL Q5M PRN (Reason: Chest Pain) tamsulosin [Flomax] 0.4 mg capsule 0.8 mg PO BEDTIME@18 magnesium oxide 400 mg magnesium capsule 250 mg PO DAILY@06 montelukast 10 mg tablet 10 mg PO DAILY albuterol sulfate 90 mcg/actuation HFA aerosol inhaler 1 puff inhalation Q4H PRN (Reason: shortness of breath or wheezing) lisinopril 20 mg tablet 20 mg PO DAILY Qty: 90 3RF Farxiga 5 mg tablet 5 mg PO QAM Qty: 30 11RF carbidopa-levodopa 25-100 mg tablet 1 tab PO TID furosemide 40 mg tablet 40 mg PO DAILY@06 potassium chloride 10 mEq tablet,ER particles/crystals 10 meq PO DAILY Qty: 90 3RF atorvastatin 40 mg tablet 40 mg PO DAILY citalopram 20 mg tablet 20 mg PO DAILY metformin 750 mg tablet extended release 24 hr 750 mg PO BID amiodarone 200 mg tablet 200 mg PO DAILY metoprolol succinate 100 mg tablet extended release 24 hr 100 mg PO DAILY warfarin 3 mg tablet 3 mg PO DAILY Protocol: Dose Management Condition: Wednesday Dose/Route: 3 mg Instruction: 1 x 3 mg tablet Condition: Wednesday Dose/Route: 3 mg Instruction: 1 x 3 mg tablet Condition: Wednesday Dose/Route: 3 mg Instruction: 1 x 3 mg tablet Condition: Wednesday Dose/Route: 3 mg Instruction: 1 x 3 mg tablet Condition: Dose/Route: 3 mg Instruction: 1 x 3 mg tablet Condition: Wednesday Dose/Route: 3 mg Instruction: 1 x 3 mg tablet Condition: Wednesday Dose/Route: 3 mg Instruction: 1 x 3 mg tablet Protocol Text: Adjustment Start Date: 02/11/23 INR Value: 2.5 INR Date: 02/08/23 Recheck Date: 02/18/23 levothyroxine 50 mcg tablet 50 mcg PO DAILY isosorbide mononitrate 30 mg tablet extended release 24 hr 30 mg PO DAILY Qty: 30 0RF Discharge Orders: Discharge ED (Routine); Ordered 02/14/23 Ordered By: Vini Parada Referrals: Bassam Hou MD [Primary Care Provider] - Discharge Diet: Usual diet Discharge Activity: Increase activity as tolerated Patient Instructions: Cervical Radiculopathy (ED) Activity Restrictions/Additional Instructions: Use Tylenol as needed for pain and discomfort. Use ice or heat for further pain relief. Activity as tolerated. Follow-up with primary care as needed. Return to ED for worsening symptoms such as high fever greater than 100.4, increased shortness of breath, or severe chest pain. Coding Level of Care Code ED Final Operations Technician for Stan Haider
--- NOTE | 2023-02-14 14:01 | ECG_ITS ---
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 Measurements Intervals [place] Rate: 76 P: 54 [place]: 176 QRS: 10 QRSD: 91 T: 70 QT: 360 QTc: 407 Interpretive Statements SINUS RHYTHM WITH SINUS ARRHYTHMIA NONSPECIFIC ST & T-WAVE ABNORMALITY Compared to ECG 01/23/2023 08:12:30 No significant changes Electronically Signed On 02-14-2023 20:33:51 CDT by Dario Quijano M.D. [id number]
--- NOTE | 2023-02-14 14:01 | XRR_ITS ---
PROCEDURE INFORMATION: Exam: XR Cervical Spine Exam date and time: 02/14/2023 2:16 PM Age: 82 years old Clinical indication: Neck pain TECHNIQUE: Imaging protocol: Radiologic exam of the cervical spine. Views: 2 or 3 views. COMPARISON: CR (CHEST, ) 02/14/2023 2:15 PM FINDINGS: Bones/joints: Cervical spine is visualized on lateral view to the level of C5. Mild multilevel degenerative changes of the cervical spine. No acute displaced fracture identified. Vertebral body heights are maintained. Mild straightening of the normal cervical lordosis. No spondylolisthesis. The lateral elements of C1 are symmetric about the dens on open-mouth odontoid view. Soft tissues: Prevertebral soft tissues are within normal limits. Other findings: Hearing aids noted. XR/XR cervical spine 3V* [id number] IMPRESSION: No acute fracture or subluxation of the cervical spine.
--- NOTE | 2023-02-14 14:02 | XRR_ITS ---
PROCEDURE INFORMATION: Exam: XR Chest Exam date and time: 02/14/2023 2:15 PM Age: 82 years old Clinical indication: Pain; Chest pressure; Additional info: Chest pain TECHNIQUE: Imaging protocol: Radiologic exam of the chest. Views: 1 view. COMPARISON: CR (CHEST, ) 01/23/2023 6:07 AM FINDINGS: Lungs: Hazy opacity in the right perihilar region. Pleural spaces: No large pleural effusion. No significant pneumothorax. Heart/Mediastinum: Cardiomediastinal silhouette is stable. Vasculature: Calcifications of the aortic knob. Bones/joints: Osseous structures are unchanged. XR/XR chest 1V portable [id number] IMPRESSION: Hazy opacity in the right perihilar region. This may represent chronic lung markings; however, it appears slightly increased in conspicuity compared to 01/23/2023 and moderately increased in conspicuity compared to 08/12/2022 and prior radiographs in 2019. A focal pneumonia in this location is not excluded.
[2023-02-14 14:16] LABS: Basophils % 0.5 %; Eosinophils # 0.2 10^3/uL (0.0-0.8); Hematocrit 44.4 % (37-53); Lymphocytes # 0.8 10^3/uL (0.8-4.8); Mean Corpuscular Hemoglobin 28.7 pg (27-33); Mean Corpuscular Volume 89.9 fl (82-101); Mean Platelet Volume 9.1 fL (7.4-10.4); Monocytes # 0.8 10^3/uL (0.2-0.9); Monocytes % 10.4 %; Neutrophils # 6.22 10^3/uL (1.8-7.7); Neutrophils % 76.9 %; Nucleated Red Blood Cells % 0 %; Platelet Count 290 10^3/cmm (157-399); Red Blood Count 4.94 10^6/uL (3.85-5.65); Red Cell Distribution Width 14.5 % (12.1-15.1); White Blood Count 8.09 10^3/uL (3.29-11.43)
[2023-02-14 14:18] VITALS: BP 129/66; PULSE 73; RESP 16; O2SAT 93
[2023-02-14 14:44] LABS: Troponin(5th) Baseline 16 ng/L (0-15)
[2023-02-14 14:50] LABS: Alanine Aminotransferase 7 U/L (0-41); Albumin Level 3.8 g/dL (3.5-5.2); Alkaline Phosphatase 95 U/L (40-130); Anion Gap 18.3 (5-19); Aspartate Amino Transferase 14 U/L (0-40); Blood Urea Nitrogen 19 mg/dL (8-23); Calcium 8.9 mg/dL (8.5-10.5); Carbon Dioxide 31 mmol/L (22-29); Chloride 92 mmol/L (98-107); Globulin 3.2 g/dL (1.3-4.6); Glucose 140 mg/dL (65-115); Osmolality Calculated 289 mOsm/kg (285-295); Potassium 4.3 mmol/L (3.5-5.1); Sodium 137 mmol/L (136-145); Total Bilirubin 0.5 mg/dL (0.15-1.2)
== END 2023-02-14 15:26 | disposition home or self-care (01) ==
PROVIDERS: Emergency Provider Nurse Practitioner Family; PCP Family Medicine
DX: M54.12 Radiculopathy, cervical region (principal); I25.10 Atherosclerotic heart disease of native coronary artery without angina pectoris; Z79.84 Long term (current) use of oral hypoglycemic drugs; Z79.01 Long term (current) use of anticoagulants; I11.0 Hypertensive heart disease with heart failure; I50.9 Heart failure, unspecified; E11.9 Type 2 diabetes mellitus without complications
CPT/HCPCS: 71045; 72040; 80053; 84484; 85025; 93005; 99285

== ENCOUNTER 2023-02-18 08:50 | Outpatient (CLI) | payer MEDICARE, SELFPAY ==
[2023-02-18 09:30] VITALS: BMI 30.8
--- NOTE | 2023-02-18 10:11 | ECG_ITS ---
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 Interpretive Statements NAME OF STUDY: LEXISCAN SESTAMIBI STRESS TEST INDICATION: Chest pain PROCEDURE: At the baseline, the blood pressure was 120/65 mm Hg with a heart rate of 72 bpm. The electrocardiogram showed sinus rhythm, normal axis. Normal ST and T's. ??? The Lexiscan was infused over a period of 20 seconds. A total of 0.4 milligrams of Lexiscan was infused. The stress phase was continued for a total of 5 minutes. Heart rate at the end of the stress phase was 80 bpm with a blood pressure of 125/64 mm Hg. The EKG at the peak infusion revealed no significant ST- T wave chnages. ??? Sestamibi was injected 20 seconds after the Lexiscan infusion. ??? Blood pressure at the end of the recovery phase was 108/54 mm Hg with a heart rate of 82 beats per minute. ??? CONCLUSION: 1. No significant EKG changes with the LexiScan infusion. 2. No LexiScan induced chest pain or cardiac arrhythmia. 3. Normal blood pressure and heart rate response. 4. Sestamibi/sestamibi perfusion scan pending; see separate report. Electronically Signed On 02-23-2023 12:25:37 CDT by Liz Gibson M.D. [id number]
--- NOTE | 2023-02-18 10:12 | NMCV_ITS ---
NM morena perf SPECT r/s* [id number] Lalo Hess Age: 82 Gender: M : 1940 Exam Date: 02/18/2023 10:12 Ordering Phys: Jose Garrison DO Technologist: MANJIT Miller Exam Location: [facility] Indications: CHEST PAIN STRESS TEST Please see separate stress test report in [facility] for full findings IMAGE PROTOCOL Rest/Stress 1 Lexiscan Day Radiopharmaceutical Dose (mCi) Administration Site Administered by Rest: Tc-99m 10.9 IV Aracelis Mccain, LAUNCH OPERATOR Sestamibi Stress:Tc-99m 33.0 IV Aracelis Adán, LAUNCH OPERATOR Sestamibi Rest: 18-Feb-2023 60 Discovery 630 Stress: 18-Feb-2023 30 Discovery 630 0.4mg Lexiscan. Supine position only as patient was unable to lay prone. SPECT RESULTS Technical Quality: Excellent Raw Data Analysis: Normal Image Corrections: No attenuation or motion correction applied Summed Stress Score: 10 Summed Rest Score: 16 Summed Difference Score: 1 PERFUSION FINDINGS Medium sized perfusion abnormality of mid to apical inferior, basal to mid inferolateral, apical lateral, mid to apical septal and apical jj on rest images with improved tracer uptake in inferior and septal jj on stress images. FUNCTIONAL RESULTS (calculated via Gated SPECT) Stress Image LV EF (%): 73 Stress EDV (mL):97 TID: 1.04 Stress ESV (mL):26 FUNCTIONAL FINDINGS: The left ventricle is normal in size. Transient Ischemia Dilatation of 1. The left ventricular ejection fraction is normal with a value of 73%. There is normal left ventricular wall thickening. Normal end-diastolic and end-systolic volumes. IMPRESSIONS 1. Medium sized perfusion abnormality of mid to apical inferior, basal to mid inferolateral, apical lateral, mid to apical septal and apical jj with improved tracer uptake in inferior and septal jj. This is suggestive of attenuation artifact. 2. Overall left ventricular systolic function is normal without regional wall motion abnormalities, LVEF=73%. 3. No EKG changes with Lexiscan infusion. 4. No coronary ischemia based on the study. Liz Gibson MD (Electronically Signed) Final Date: 23 February 2023 10:33 S
[2023-02-18] MEDS: regadenoson 0.4 Mg/5 ml Syringe IVP (11:39)
[2023-02-18 11:48] VITALS: BP 117/61; PULSE 80
== END 2023-02-18 08:51 | disposition home or self-care (01) ==
LOC: CDL 08:51
PROVIDERS: PCP Family Medicine; Visit Provider Family Medicine
DX: R07.9 Chest pain, unspecified (principal)
CPT/HCPCS: 36415; 78452; 93017; 96374; A9500; J2785

== ENCOUNTER → 2023-08-04 11:19 | Outpatient (BNVA) | payer MEDICARE, SELFPAY | PROVIDERS: PCP Family Medicine; Visit Provider Internal Medicine Cardiovascular Disease | DX: I48.0 Paroxysmal atrial fibrillation (principal); Z79.01 Long term (current) use of anticoagulants; E78.2 Mixed hyperlipidemia; I11.0 Hypertensive heart disease with heart failure; I50.23 Acute on chronic systolic (congestive) heart failure; K21.00 Gastro-esophageal reflux disease with esophagitis, without bleeding; Z79.899 Other long term (current) drug therapy | CPT/HCPCS: 99214 ==

== ENCOUNTER → 2024-08-07 10:13 | Outpatient (BNVA) | payer MEDICARE, SELFPAY | PROVIDERS: PCP Family Medicine; Visit Provider Internal Medicine Cardiovascular Disease | DX: I48.0 Paroxysmal atrial fibrillation (principal); I50.23 Acute on chronic systolic (congestive) heart failure; E78.2 Mixed hyperlipidemia; I10 Essential (primary) hypertension | CPT/HCPCS: 36415; 80048; 83880; 99214 ==